=== PATIENT | female | born 1950 | race Caucasian/White ===

== ENCOUNTER 2020-06-26 08:40 | Outpatient (REF) | payer MEDICARE, SELFPAY ==
[2020-06-26 10:36] LABS: Cholesterol 162 mg/dL; HDL Cholesterol 55 mg/dL; LDL Cholesterol Calculated 81 mg/dl; Triglycerides 131 mg/dL
== END 2020-06-26 08:41 | disposition home or self-care (01) ==
LOC: HO.LAB 08:40
PROVIDERS: PCP Internal Medicine; Visit Provider Physician Assistant
DX: E78.5 Hyperlipidemia, unspecified (principal)
CPT/HCPCS: 80061

== ENCOUNTER 2020-06-29 10:54 | Outpatient (REF) | payer MEDICARE, SELFPAY ==
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
== END 2020-06-29 10:55 | disposition home or self-care (01) ==
LOC: HO.MAMMO 10:54
PROVIDERS: PCP Internal Medicine; Visit Provider Internal Medicine
DX: Z12.31 Encounter for screening mammogram for malignant neoplasm of breast (principal)
CPT/HCPCS: 77063; 77067

== ENCOUNTER → 2020-10-15 09:38 | Outpatient (BNVA) | payer MEDICARE, SELFPAY | PROVIDERS: PCP Internal Medicine; Visit Provider Advanced Practice Midwife ==

== ENCOUNTER 2020-10-22 08:09 | Outpatient (REF) | payer MEDICARE, SELFPAY ==
--- NOTE | ~2020-10-22 | MM_ITS ---
EXAMINATION: BONE DENSITOMETRY CLINICAL INDICATION: Menopause. COMPARISON: Previous BD dated 05/02/2011 and baseline BD dated 10/12/2006. TECHNIQUE: Using a [employer] DXA System (software version: 13.1) manufactured by [employer], dual-energy x-ray absorptiometry was performed of the lumbar spine and left hip. The images are of good technical quality. Summary results are attached. FINDINGS: AP SPINE L1-L4 (excluding L2 and L3): The data of L1-L4 has been changed to exclude the L2 and L3 vertebral bodies, because degenerative changes at these levels may cause overestimation of lumbar spine density. Current: BMD 1.317 g/cm2, Z-score 2.2, T-score 1.3, normal, 8.4% increase from previous, 10.5% increase from baseline (<5% change is not significant). Prior: BMD 1.215 g/cm2. Baseline: BMD 1.192 g/cm2. LEFT FEMUR, NECK: Current: BMD 0.945 g/cm2, Z-score 0.6, T-score -0.7, normal. Prior: BMD 0.919 g/cm2. Baseline: BMD 0.879 g/cm2. LEFT FEMUR, TOTAL: Current: BMD 1.201 g/cm2, Z-score 2.5, T-score 1.5, normal, 7.3% increase from previous, 12.9% increase from baseline (<5% change is not significant). Prior: BMD 1.119 g/cm2. Baseline: BMD 1.064 g/cm2. IDENTIFIED RISK FACTORS: Early menopause, bilateral oophorectomy, secondary osteoporosis. HISTORY OF FRACTURE: None listed. MEDICATIONS: Calcium, vitamin D. MM/XR DEXA axial skeleton IMPRESSION: 1. DIAGNOSIS: Normal bone density based on the lowest T-score value of -0.7 in the femoral neck applying World Health Organization criteria. 2. 10-YEAR FRACTURE RISK PREDICTION, FRAX: According to the guidelines, FRAX calculation should only be performed on patients in the osteopenia bone density category. Therefore, FRAX was not performed on this patient. 3. Treatment Recommendations: NOF guidelines recommend consideration for treatment in postmenopausal women and men age 50 and older presenting with the following: -A hip or vertebral (clinical or morphometric) fracture. -T-score less than or equal to -2.5 at the femoral neck or spine after appropriate evaluation to exclude secondary causes. -Low bone mass at the hip or spine and a 10-year fracture probability by FRAX of greater than or equal to 3% for hip fracture or greater than or equal to 20% for major osteoporotic fracture based on the [place] adapted WHO algorithm. 4. Other Recommendations: All treatment decisions require clinical judgment and consideration of individual patient factors, including patient preferences, comorbidities, previous drug use, risk factors not captured in the FRAX model (e.g. frailty, falls, vitamin D deficiency, increased bone turnover, interval significant decline in bone density) and possible under or overestimation of fracture risk by FRAX. FUTURE SCAN RECOMMENDATION: People with diagnosed cases of osteoporosis or at high risk for fracture should have regular bone mineral density tests. For patients eligible for Medicare, routine testing is allowed once every 2 years. The testing frequency can be increased to one year for patients who have rapidly progressing disease, those who are receiving or discontinuing medical therapy to restore bone mass, or have additional risk factors.
== END 2020-10-22 08:10 | disposition home or self-care (01) ==
LOC: HO.MAMMO 08:09
PROVIDERS: Visit Provider Advanced Practice Midwife
DX: Z13.820 Encounter for screening for osteoporosis (principal); Z78.0 Asymptomatic menopausal state; Z90.722 Acquired absence of ovaries, bilateral
CPT/HCPCS: 77080

== ENCOUNTER → 2020-11-17 11:25 | Outpatient (BNVA) | payer MEDICARE, SELFPAY | PROVIDERS: PCP Internal Medicine; Visit Provider Urology | DX: Z13.89 Encounter for screening for other disorder (principal) | CPT/HCPCS: 99212 ==

== ENCOUNTER 2021-01-21 09:03 | Outpatient (REF) | payer MEDICARE, SELFPAY ==
--- NOTE | ~2021-01-21 | US_ITS ---
EXAMINATION: US ABDOMEN COMPLETE CLINICAL INFORMATION: Elevated LFTs. COMPARISON: Ultrasound abdomen complete 05/03/2020. CT abdomen and pelvis 03/01/2020. KUB 12/20/2015. TECHNIQUE: Real-time imaging of the abdominal viscera. FINDINGS: PANCREAS: Normal. ABDOMINAL AORTA: The proximal, mid, and distal segments are normal in caliber. INFERIOR VENA CAVA: Visualized portions are normal. LIVER: The liver is normal in size. The liver contour is normal. There is diffuse increased liver parenchymal echogenicity, consistent with hepatic steatosis. No focal hepatic lesion. There is no intrahepatic biliary duct dilatation seen. GALLBLADDER: Multiple mobile gallstones. The gallbladder is physiologically distended. Multiple mobile gallstones are present. No evidence of gallbladder wall thickening or pericholecystic fluid. COMMON BILE DUCT: Normal in caliber measuring 0.3 cm in diameter. RIGHT KIDNEY: Normal. No hydronephrosis. No renal calculi or focal parenchymal lesions. The kidney measures 11.5 cm in maximum dimension. LEFT KIDNEY: Normal. No hydronephrosis. No renal calculi or focal parenchymal lesions. The kidney measures 9.7 cm in maximum dimension. SPLEEN: Normal. The spleen measures 11.0 cm in maximum dimension. FREE FLUID: None. US/US abdomen complete IMPRESSION: 1. Hepatic steatosis. 2. Cholelithiasis.
== END 2021-01-21 09:04 | disposition home or self-care (01) ==
LOC: HO.HMGCX 09:03
PROVIDERS: Visit Provider Physician Assistant
DX: R74.01 Elevation of levels of liver transaminase levels (principal)
CPT/HCPCS: 76700

== ENCOUNTER 2021-03-07 14:44 | Outpatient (REF) | payer MEDICARE, SELFPAY ==
[2021-03-07 18:16] LABS: MANUAL DIFF FLAG NO
[2021-03-07 18:23] LABS: Basophils Percent Auto 0.7 % (0-2); Eosinophils Percent Auto 0.5 % (0-4); Hematocrit 35.1 % (37-47); Hemoglobin 11.5 g/dl (12.0-16.0); Imm Gran Abs Auto 0.01 X10*3/uL (0.00-0.03); Imm Gran Pct Auto 0.2 % (0.0-0.4); Lymphocytes Absolute Auto 1.7 X10*3/uL (1.2-4.9); Lymphocytes Percent Auto 29.9 % (20-40); Mean Corpuscular HGB Conc 32.8 g/dl (31.0-35.0); Mean Corpuscular Hemoglobin 29.8 pg (27.0-33.0); Mean Corpuscular Volume 90.9 fL (80-98); Mean Platelet Volume 11.9 fL (9.4-12.3); Monocytes Absolute Auto 0.7 X10*3/uL (0.1-1.2); Monocytes Percent Auto 11.8 % (2-11); Neutrophils Absolute Auto 3.2 X10*3/uL (2.0-8.3); Neutrophils Percent Auto 56.9 % (45-73); Platelet Count 252 X10*3/uL (160-400); Red Blood Count 3.86 X10*6/uL (4.20-5.50); Red Cell Distribution Width 13.3 % (11.0-16.0); White Blood Count 5.6 X10*3/uL (4.8-10.8)
[2021-03-07 18:30] LABS: Alanine Aminotransferase 82 U/L (0-31); Albumin Level 4.1 g/dL (3.5-5.0); Alkaline Phosphatase 65 U/L (39-117); Anion Gap 17 (12-20); Aspartate Amino Transferase 96 U/L (5-31); Bilirubin Total 0.7 mg/dL (0.0-1.0); Blood Urea Nitrogen 28 mg/dL (9-16); C Reactive Protein 0.29 mg/dL (< or = 0.50); Calcium 9.3 mg/dL (8.4-10.2); Carbon Dioxide 24 mmol/L (22-29); Chloride 101 mmol/L (96-108); Estimated Glomerular Filt Rate 48; Glucose Random 207 mg/dL (60-115); Potassium 4.3 mmol/L (3.3-5.1); Sodium 138 mmol/L (135-145); Total Protein 8.2 g/dL (6.5-8.0)
[2021-03-07 18:34] LABS: Estimated Average Glucose 169 mg/dL; Hemoglobin A1c % 7.5 %
[2021-03-07 18:39] LABS: Rheumatoid Factor < 15.0 IU/mL (<15.0)
[2021-03-07 18:59] LABS: Erythrocyte Sedimentation Rate 27 MM/HR (0-20)
[2021-03-09 13:51] LABS: Antibody to SS-A Antigen <1.0 NEG AI (<1.0 NEG); Antibody to SS-B Antigen <1.0 NEG AI (<1.0 NEG)
[2021-03-11 14:42] LABS: Anti Nuclear Antibody Pattern Nuclear, Homogeneous; Anti Nuclear Antibody Screen POSITIVE (NEGATIVE)
== END 2021-03-07 14:45 | disposition home or self-care (01) ==
LOC: HO.MANLDS 14:44
PROVIDERS: PCP Internal Medicine; Visit Provider Physician Assistant
DX: E11.9 Type 2 diabetes mellitus without complications (principal)
CPT/HCPCS: 36415; 80053; 83036; 85025; 85652; 86038; 86039; 86140; 86235; 86431

== ENCOUNTER 2021-04-20 14:56 | Outpatient (REF) | payer MEDICARE, SELFPAY ==
[2021-04-20 18:53] LABS: Estimated Average Glucose 134 mg/dL; Hemoglobin A1c % 6.3 %
== END 2021-04-20 14:57 | disposition home or self-care (01) ==
LOC: HO.MANLDS 14:56
PROVIDERS: PCP Physician Assistant; Visit Provider Physician Assistant
DX: E11.9 Type 2 diabetes mellitus without complications (principal)
CPT/HCPCS: 36415; 83036

== ENCOUNTER 2021-07-21 11:22 | Outpatient (REF) | payer MEDICARE, SELFPAY ==
--- NOTE | ~2021-07-21 | MM_ITS ---
EXAMINATION: MM SCREENING DIGITAL BREAST TOMOSYNTHESIS, BILATERAL CLINICAL INFORMATION: Screening. Asymptomatic. The lifetime risk of breast cancer based on the Tyrer-Cuzick Model is 8%. COMPARISON: Mammography: 06/29/2020, 06/24/2019, 06/11/2018 TECHNIQUE: Digital breast tomosynthesis is performed in both the craniocaudal and mediolateral oblique views along with computer-aided detection (CAD). Synthesized 2D images are generated from the tomosynthesis. Additional bilateral MLO views are provided. FINDINGS: There are scattered areas of fibroglandular density (ACR BI-RADS breast composition Category b). There are no significant masses, abnormal calcifications, or other abnormalities. There is biopsy clip marker again noted central upper outer right breast. There are scattered bilateral benign coarse calcifications and some oil cysts again noted from prior trauma. No significant changes. MM/MM tomosynthesis screening BI IMPRESSION: No mammographic evidence of malignancy. ASSESSMENT: BI-RADS 2: Benign RECOMMENDATION: Routine annual mammography screening. This patient's information was entered into a reminder system with a target due date for their next mammogram.
== END 2021-07-21 11:23 | disposition home or self-care (01) ==
LOC: HO.MAMMO 11:22
PROVIDERS: Visit Provider Physician Assistant
DX: Z12.31 Encounter for screening mammogram for malignant neoplasm of breast (principal)
CPT/HCPCS: 77063; 77067

== ENCOUNTER 2021-12-21 08:09 | Outpatient (REF) | payer MEDICARE, SELFPAY ==
[2021-12-21 08:28] LABS: MANUAL DIFF FLAG NO
[2021-12-21 08:34] LABS: Basophils Percent Auto 0.8 % (0-2); Eosinophils Percent Auto 0.8 % (0-4); Hemoglobin 12.1 g/dl (12.0-16.0); Imm Gran Abs Auto 0.03 X10*3/uL (0.00-0.03); Imm Gran Pct Auto 0.6 % (0.0-0.4); Lymphocytes Absolute Auto 1.5 X10*3/uL (1.2-4.9); Mean Corpuscular HGB Conc 31.8 g/dl (31.0-35.0); Mean Corpuscular Hemoglobin 29.6 pg (27.0-33.0); Mean Corpuscular Volume 92.9 fL (80.0-98.0); Mean Platelet Volume 10.3 fL (9.4-12.3); Monocytes Absolute Auto 0.7 X10*3/uL (0.1-1.2); Neutrophils Absolute Auto 2.9 x10*3/uL (2.0-8.3); Neutrophils Percent Auto 54.8 % (45-73); Platelet Count 236 X10*3/uL (160-400); Red Blood Count 4.09 X10*6/uL (4.20-5.50); Red Cell Distribution Width 13.7 % (11.0-16.0); White Blood Count 5.3 X10*3/uL (4.8-10.8)
[2021-12-21 08:51] LABS: Estimated Average Glucose 134 mg/dL; Hemoglobin A1c % 6.3 %
[2021-12-21 09:19] LABS: Alanine Aminotransferase 35 U/L (0-31); Albumin Level 4.5 g/dL (3.5-5.0); Alkaline Phosphatase 61 U/L (39-117); Anion Gap 14 (12-20); Aspartate Amino Transferase 45 U/L (5-31); Bilirubin Total 0.5 mg/dL (0.0-1.0); Blood Urea Nitrogen 29 mg/dL (9-16); Calcium 10.5 mg/dL (8.4-10.2); Carbon Dioxide 26 mmol/L (22-29); Chloride 103 mmol/L (96-108); Cholesterol 181 mg/dL; Estimated Glomerular Filt Rate 49; Glucose Random 169 mg/dL (60-115); HDL Cholesterol 66 mg/dL; LDL Cholesterol Calculated 96 mg/dl; Sodium 138 mmol/L (135-145); Total Protein 8.2 g/dL (6.5-8.0); Triglycerides 98 mg/dL
== END 2021-12-21 08:10 | disposition home or self-care (01) ==
LOC: HO.LAB 08:09
PROVIDERS: PCP Internal Medicine; Visit Provider Physician Assistant
DX: E78.2 Mixed hyperlipidemia (principal); I10 Essential (primary) hypertension; E11.9 Type 2 diabetes mellitus without complications
CPT/HCPCS: 36415; 80053; 80061; 83036; 85025

== ENCOUNTER 2022-01-23 10:51 | Outpatient (REF) | payer MEDICARE, SELFPAY ==
--- NOTE | ~2022-01-23 | XR_ITS ---
EXAMINATION: XR LUMBOSACRAL SPINE CLINICAL INFORMATION: Normal lumbar radiculopathy. COMPARISON: 10/31/2017 TECHNIQUE: Three views of the lumbosacral spine. FINDINGS: There is stable position of neurostimulator device. Vertebral bodies are well aligned with grade 1 anterior listhesis of L4 over L5 and L5 over S1 and mild narrowing of L4-L5 and L5-S1. There is facet hypertrophy. Soft tissues are unremarkable. XR/XR lumbar spine 2-3V IMPRESSION: Degenerative changes with grade 1 anterior listhesis of L4 over L5 and L5 over S1
== END 2022-01-23 10:52 | disposition home or self-care (01) ==
LOC: HO.XRAY 10:51
PROVIDERS: PCP Internal Medicine; Visit Provider Physician Assistant
DX: M54.16 Radiculopathy, lumbar region (principal)
CPT/HCPCS: 72100

== ENCOUNTER 2022-04-12 19:53 | Outpatient (REF) | payer MEDICARE, SELFPAY ==
[2022-04-12 20:04] LABS: Appearance Urine Cloudy; Color Urine Dark Yellow; Glucose Urine UA Negative (Negative); Leukocyte Esterase Urine Negative (Negative); Nitrite Urine Negative (Negative); PH 5.5 (5.0-8.0); Specific Gravity - Urine >= 1.030 (1.005-1.025); Urine Blood Negative (Negative); Urine Ketones Trace mg/dL (Negative); Urine Protein 30 (1+) mg/dL (Neg-Trace)
[2022-04-12 20:42] LABS: Bacteria Urine 4+ (None Seen); Calcium Oxalate Crystals Urine Present; Hyaline Casts Urine 0-2 /LPF (0-2); WBC Urine 0-5 /HPF (0-5)
== END 2022-04-12 19:54 | disposition home or self-care (01) ==
LOC: HO.LNP 19:53
PROVIDERS: Visit Provider Physician Assistant
DX: R30.0 Dysuria (principal)
CPT/HCPCS: 81001

== ENCOUNTER 2022-05-02 12:10 | Outpatient (REF) | payer MEDICARE, SELFPAY ==
[2022-05-02 13:54] LABS: Appearance Urine Turbid; Color Urine Yellow; Glucose Urine UA Negative (Negative); Leukocyte Esterase Urine Trace (Negative); Nitrite Urine Negative (Negative); PH 5.5 (5.0-9.0); UMIC TRIGGER UACC YES; Urine Blood Negative (Negative); Urine Ketones Negative (Negative); Urine Protein 30 (1+) mg/dL (Neg-Trace)
[2022-05-02 14:04] LABS: Bacteria Urine 2+ (None Seen); RBC Urine 0-2 /HPF (0-2); UACC Culture Trigger YES
== END 2022-05-02 12:11 | disposition home or self-care (01) ==
LOC: HO.MANLDS 12:10
PROVIDERS: Visit Provider Physician Assistant
DX: R30.0 Dysuria (principal)
CPT/HCPCS: 81001; 87086

== ENCOUNTER 2022-07-27 11:11 | Outpatient (REF) | payer MEDICARE, SELFPAY ==
--- NOTE | ~2022-07-27 | MM_ITS ---
EXAMINATION: MM SCREENING DIGITAL BREAST TOMOSYNTHESIS, BILATERAL CLINICAL INFORMATION: Screening. Asymptomatic. The lifetime risk of breast cancer based on the Tyrer-Cuzick Model is 7.9%. COMPARISON: Mammography: July 21, 2021 and studies dating back to May 10, 2016 TECHNIQUE: Digital breast tomosynthesis is performed in both the craniocaudal and mediolateral oblique views along with computer-aided detection (CAD). Synthesized 2D images are generated from the tomosynthesis. FINDINGS: The breasts are heterogeneously dense, which may obscure small masses (ACR BI-RADS breast composition Category c). There are no new significant masses, abnormal calcifications, or other abnormalities. MM/MM tomosynthesis screening BI IMPRESSION: No significant changes from prior exam. ASSESSMENT: BI-RADS 1: Negative RECOMMENDATION: Routine annual mammography screening. This patient's information was entered into a reminder system with a target due date for their next mammogram.
== END 2022-07-27 11:12 | disposition home or self-care (01) ==
LOC: HO.MAMMO 11:11
PROVIDERS: PCP Internal Medicine; Visit Provider Internal Medicine
DX: Z12.31 Encounter for screening mammogram for malignant neoplasm of breast (principal)
CPT/HCPCS: 77063; 77067

== ENCOUNTER 2022-09-15 09:18 | Outpatient (REF) | payer MEDICARE, SELFPAY ==
[2022-09-15 09:34] LABS: MANUAL DIFF FLAG NO
[2022-09-15 11:06] LABS: Basophils Percent Auto 0.6 % (0-2); Eosinophils Percent Auto 0.4 % (0-4); Hematocrit 36.6 % (37.0-47.0); Hemoglobin 12.2 g/dl (12.0-16.0); Imm Gran Abs Auto 0.03 X10*3/uL (0.00-0.03); Imm Gran Pct Auto 0.6 % (0.0-0.4); Lymphocytes Absolute Auto 1.7 X10*3/uL (1.2-4.9); Lymphocytes Percent Auto 33.3 % (20-40); Mean Corpuscular HGB Conc 33.3 g/dl (31.0-35.0); Mean Corpuscular Volume 90.1 fL (80.0-98.0); Mean Platelet Volume 12.5 fL (9.4-12.3); Monocytes Absolute Auto 0.7 X10*3/uL (0.1-1.2); Monocytes Percent Auto 14.6 % (2-11); Neutrophils Absolute Auto 2.6 x10*3/uL (2.0-8.3); Neutrophils Percent Auto 50.5 % (45-73); Platelet Count 183 X10*3/uL (160-400); Red Blood Count 4.06 X10*6/uL (4.20-5.50); Red Cell Distribution Width 14.3 % (11.0-16.0); White Blood Count 5.1 X10*3/uL (4.8-10.8)
[2022-09-15 11:21] LABS: Estimated Average Glucose 137 mg/dL; Hemoglobin A1c % 6.4 %
[2022-09-15 11:38] LABS: Cholesterol 165 mg/dL; HDL Cholesterol 60 mg/dL; LDL Cholesterol Calculated 86 mg/dl; Triglycerides 97 mg/dL
== END 2022-09-15 09:19 | disposition home or self-care (01) ==
LOC: HO.LABR 09:18
PROVIDERS: PCP Internal Medicine; Visit Provider Physician Assistant
DX: I10 Essential (primary) hypertension (principal); E11.9 Type 2 diabetes mellitus without complications; E78.2 Mixed hyperlipidemia
CPT/HCPCS: 36415; 80061; 83036; 85025

== ENCOUNTER 2022-11-29 07:39 | Outpatient (REF) | payer MEDICARE, SELFPAY ==
--- NOTE | ~2022-11-29 | US_ITS ---
EXAMINATION: US ABDOMEN COMPLETE CLINICAL INFORMATION: Left upper quadrant pain. COMPARISON: Ultrasound abdomen complete 01/21/2021 and 05/03/2020. CT abdomen and pelvis 03/01/2020. X-ray abdomen KUB 12/20/2015. TECHNIQUE: Real-time imaging of the abdominal viscera. FINDINGS: PANCREAS: Normal. ABDOMINAL AORTA: There is mild atherosclerosis INFERIOR VENA CAVA: Visualized portions are normal. LIVER: The liver is enlarged with the right lobe measuring 19.2 cm and the left lobe measuring 12 cm. There is diffuse increased echogenicity with no focal lesion or intrahepatic ductal dilatation. The hepatic contour is normal. GALLBLADDER: Surgically absent. COMMON BILE DUCT: Normal in caliber measuring 0.5 cm in diameter. RIGHT KIDNEY: Normal. No hydronephrosis. No renal calculi or focal parenchymal lesions. The kidney measures 11.5 cm in maximum dimension. LEFT KIDNEY: Normal. No hydronephrosis. No renal calculi or focal parenchymal lesions. The kidney measures 10.5 cm in maximum dimension. SPLEEN: Normal. The spleen measures 11.5 cm in maximum dimension. FREE FLUID: None. US/US abdomen complete IMPRESSION: 1. Diffuse fatty infiltration of liver without focal lesion. Mild hepatomegaly 2. The rest of the abdominal ultrasound is unremarkable.
== END 2022-11-29 07:40 | disposition home or self-care (01) ==
LOC: HO.HMGCX 07:39
PROVIDERS: PCP Internal Medicine; Visit Provider Physician Assistant
DX: R10.12 Left upper quadrant pain (principal)
CPT/HCPCS: 76700

== ENCOUNTER 2022-12-15 11:28 | Outpatient (REF) | payer MEDICARE, SELFPAY ==
[2022-12-15 13:16] LABS: Creatinine Urine 119.17 mg/dL; Microalbum/Creatinine Ratio Ur 326.4 ug/mg cr
[2022-12-15 13:18] LABS: Estimated Average Glucose 154 mg/dL
[2022-12-15 13:45] LABS: Alanine Aminotransferase 47 U/L (0-31); Albumin Level 4.5 g/dL (3.5-5.0); Alkaline Phosphatase 83 U/L (39-117); Anion Gap 14 (12-20); Aspartate Amino Transferase 53 U/L (5-31); Bilirubin Total 0.7 mg/dL (0.0-1.0); Blood Urea Nitrogen 17 mg/dL (9-16); Calcium 10.2 mg/dL (8.4-10.2); Carbon Dioxide 25 mmol/L (22-29); Chloride 102 mmol/L (96-108); Estimated Glomerular Filt Rate 60; Glucose Random 104 mg/dL (60-115); Potassium 4.9 mmol/L (3.3-5.1); Sodium 136 mmol/L (135-145); Total Protein 8.4 g/dL (6.5-8.0)
== END 2022-12-15 11:29 | disposition home or self-care (01) ==
LOC: HO.MANLDS 11:28
PROVIDERS: Visit Provider Internal Medicine
DX: E11.9 Type 2 diabetes mellitus without complications (principal)
CPT/HCPCS: 36415; 80053; 82043; 83036

== ENCOUNTER → 2023-01-01 07:45 | Outpatient (REF) | payer MEDICARE, SELFPAY ==
--- NOTE | 2023-01-01 07:49 | CA_ITS ---
Transthoracic Echocardiogram Patient (Last, First, Middle): Renée Manzanares L Gender: Female Date of : 1950 Age: 72 Procedure Date: 01/01/2023 Procedure Type: Transthoracic Echocardiogram Location: OP Height: 152.4 cm Weight: 87.09 kg BSA: 1.83 m2 Heart Rate: bpm BP: 126 / 60 mmHg [employer]ant Swimmer: Referring MD: Dayton Kitchen MD Symptoms: R06.09 [id number] Study Quality: Fair ECG Rhythm: Sinus Conclusions: - The left ventricular systolic function is normal. The visually estimated ejection fraction is between 60-65%. - Evidence suggests grade I (mild) diastolic dysfunction. - No obvious valvular pathology seen on this study. Findings Left Ventricle Normal left ventricular cavity size. There is mildly increased left ventricular wall thickness. The left ventricular systolic function is normal. The visually estimated ejection fraction is between 60-65%. There is no evidence of regional wall motion abnormalities. E/E prime ratio is >15, consistent with elevated filling pressures. Evidence suggests grade I (mild) diastolic dysfunction. Right Ventricle Normal right ventricular cavity size and systolic function. Atria Both atria are normal in size. Aortic Valve The aortic valve was not well visualized. There is no aortic valve stenosis. There is no aortic valve regurgitation. Mitral Valve The mitral valve appears normal. There is mild mitral annular calcification. There is no mitral valve regurgitation. There is no mitral valve stenosis. Pulmonic Valve The pulmonic valve is likely normal. Tricuspid Valve There is trace tricuspid valve regurgitation. There is no evidence of pulmonary hypertension. Great Vessels The asc aorta is normal in size. Venous The inferior vena cava is normal in size and collapses greater than 50% with inspiration. Pericardium/Pleural There is no evidence of pericardial effusion. Prior Study Comparison No significant change compared to prior study dated: 07/27/2017. Recommendations, Care & Conclusions No obvious valvular pathology seen on this study. Measurements 2D Linear Measurements IVSd: 1.18 0.6-0.9/0.6-1.0 cm LVIDd: 3.86 3.9-5.3/4.2-5.9 cm LVIDd Index: 2.11 2.4-3.2/2.2-3.1 cm/m2 LVIDs: 2.80 2.0-3.6 cm LVPWd: 1.14 0.7-1.1 cm Ao Root: 2.70 2.1-3.5 cm LA Diam: 4.20 2.7-3.8/3.0-4.0 cm LAIDs Index: 2.30 1.5-2.3 cm/m2 LV Mass: 185.66 67-162/88-224 g LV Mass Index: 101.45 43-95/49-115 g/m2 LVOT Diam: 1.90 3.0+(-)1.3 cm 2D Systolic Function EF 4C: 50.20 >55% EF 2C: 59.10 >55% EF BiP: 56.20 >55% Mitral Valve MV Pk E: 0.87 MV PK A: 1.21 MV Decel Time: 237.00 E/A: 0.70 E'Lateral: 4.57 E'Medial: 4.79 E/E' Med: 18.20 E/E' Lat: 19.10 PHT: 70.00 MVA PHT: 3.14 Decel Vernon: 3.68 Aortic Valve AoV Pk Carl: 1.39 AoV Mn Carl: 0.85 AoV VTI: 0.31 AoV Pk Grad: 8.00 Aov Mn Grad: 4.00 SHELDON Cont.VTI: 2.33 LVOT LVOT Pk Carl: 1.20 LVOT Mn Carl: 0.72 LVOT VTI: 0.25 LVOT Pk Grad: 6.00 LVOT Mn Grad: 3.00 LVOT Diam: 1.90 LVOT Area: 2.84 Diastolic Function MV Pk E: 0.87 MV Pk A: 1.21 E/A: 0.70 E'Medial: 4.79 E/E' Med: 18.20 E' Laterial: 4.57 E/E' Lat: 19.10 Right Ventricle TAPSE (mm): 24.00 TVS' Carl: 11.00 Tricuspid Valve TR Pk Carl: 2.48 TR Pk Grad: 25.00 RA Press: 3.00 RVSP: 28.00 Great Vessels Aorta Ao Root-2D: 2.70 2.0-3.7 cm Ao Asc: 2.90 2.1-3.4 cm Pulmonary Valve PV Pk Carl: 0.86 Peak PV Grad: 3.00 Updated in Other Vendor System with Status of Final Lev Matthews MD electronically signed on 01/01/2023 11:38:18 AM with status of Final
== END ==
LOC: HO.CARD 07:45
PROVIDERS: PCP Internal Medicine; Visit Provider Internal Medicine
DX: R06.09 Other forms of dyspnea (principal)
CPT/HCPCS: 93306

== ENCOUNTER 2023-07-17 10:34 | Outpatient (REF) | payer MEDICARE, SELFPAY ==
[2023-07-17 13:21] LABS: MANUAL DIFF FLAG NO
[2023-07-17 13:42] LABS: Basophils Absolute Auto 0.1 X10*3/uL (0.0-0.2); Basophils Percent Auto 0.9 % (0-2); Eosinophils Percent Auto 0.5 % (0-4); Hematocrit 35.2 % (37.0-47.0); Hemoglobin 11.7 g/dl (12.0-16.0); Imm Gran Abs Auto 0.03 X10*3/uL (0.00-0.03); Imm Gran Pct Auto 0.5 % (0.0-0.4); Lymphocytes Absolute Auto 1.8 X10*3/uL (1.2-4.9); Lymphocytes Percent Auto 32.1 % (20-40); Mean Corpuscular HGB Conc 33.2 g/dl (31.0-35.0); Mean Corpuscular Hemoglobin 29.8 pg (27.0-33.0); Mean Corpuscular Volume 89.6 fL (80.0-98.0); Mean Platelet Volume 12.2 fL (9.4-12.3); Monocytes Absolute Auto 0.8 X10*3/uL (0.1-1.2); Monocytes Percent Auto 14.8 % (2-11); Neutrophils Absolute Auto 2.9 x10*3/uL (2.0-8.3); Neutrophils Percent Auto 51.2 % (45-73); Platelet Count 169 X10*3/uL (160-400); Red Blood Count 3.93 X10*6/uL (4.20-5.50); Red Cell Distribution Width 14.5 % (11.0-16.0); White Blood Count 5.6 X10*3/uL (4.8-10.8)
[2023-07-17 13:54] LABS: Estimated Average Glucose 146 mg/dL; Hemoglobin A1C 152.3971 umol/L; Hemoglobin A1c % 6.7 % (<6.0)
[2023-07-17 14:25] LABS: Alanine Aminotransferase 51 U/L (0-31); Albumin Level 4.4 g/dL (3.5-5.0); Alkaline Phosphatase 60 U/L (39-117); Anion Gap 11 (12-20); Aspartate Amino Transferase 64 U/L (5-31); Bilirubin Total 0.6 mg/dL (0.0-1.0); Blood Urea Nitrogen 20 mg/dL (9-16); Calcium 9.5 mg/dL (8.4-10.2); Carbon Dioxide 25 mmol/L (22-29); Chloride 106 mmol/L (96-108); Cholesterol 165 mg/dL (<200); Estimated Glomerular Filt Rate > 60; Glucose Random 102 mg/dL (60-115); HDL Cholesterol 56 mg/dL (>40); LDL Cholesterol Calculated 92 mg/dL (<100); Potassium 4.5 mmol/L (3.3-5.1); Sodium 137 mmol/L (135-145); Total Protein 8.6 g/dL (6.5-8.0); Triglycerides 89 mg/dL (<150)
== END 2023-07-17 10:35 | disposition home or self-care (01) ==
LOC: HO.MANLDS 10:34
PROVIDERS: Visit Provider Physician Assistant
DX: R30.0 Dysuria (principal); E11.9 Type 2 diabetes mellitus without complications
CPT/HCPCS: 36415; 80053; 80061; 83036; 85025; 87086

== ENCOUNTER → 2023-08-03 11:00 | Outpatient (BNV) | payer MEDICARE, SELFPAY | PROVIDERS: PCP Physician Assistant; Visit Provider Radiology Diagnostic Radiology | DX: Z12.31 Encounter for screening mammogram for malignant neoplasm of breast (principal) | CPT/HCPCS: 77063; 77067 ==

== ENCOUNTER 2023-08-03 11:01 | Outpatient (REF) | payer MEDICARE, SELFPAY ==
--- NOTE | ~2023-08-03 | MM_ITS ---
EXAMINATION: MM SCREENING DIGITAL BREAST TOMOSYNTHESIS, BILATERAL CLINICAL INFORMATION: Screening. Asymptomatic. COMPARISON: Mammography: This study is compared with prior exams dating back to 2018. TECHNIQUE: Digital breast tomosynthesis is performed in both the craniocaudal and mediolateral oblique views along with computer-aided detection (CAD). Synthesized 2D images are generated from the tomosynthesis. FINDINGS: There are scattered areas of fibroglandular density (ACR BI-RADS breast composition Category b). There are no significant masses, abnormal calcifications, or other abnormalities. There is tissue marker present in the right breast from prior benign percutaneous biopsy. MM/MM tomosynthesis screening BI IMPRESSION: No mammographic evidence of malignancy. ASSESSMENT: BI-RADS BI-RADS 2 - Benign Findings RECOMMENDATION: Routine annual mammography screening. 1 year F/U This examination should not preclude the clinical evaluation of a suspicious palpable abnormality. This patient's information was entered into a reminder system with a target due date for their next mammogram.
== END 2023-08-03 11:02 | disposition home or self-care (01) ==
LOC: HO.MAMMO 11:01
PROVIDERS: PCP Physician Assistant; Visit Provider Internal Medicine
DX: Z12.31 Encounter for screening mammogram for malignant neoplasm of breast (principal)
CPT/HCPCS: 77063; 77067

== ENCOUNTER 2024-03-10 09:28 | Outpatient (REF) | payer MEDICARE, SELFPAY ==
[2024-03-10 13:14] LABS: MANUAL DIFF FLAG NO
[2024-03-10 13:26] LABS: Basophils Percent Auto 0.7 % (0-2); Eosinophils Percent Auto 0.5 % (0-4); Hematocrit 35.8 % (37.0-47.0); Hemoglobin 11.6 g/dl (12.0-16.0); Imm Gran Pct Auto 1.7 % (0.0-0.4); Lymphocytes Absolute Auto 1.9 X10*3/uL (1.2-4.9); Lymphocytes Percent Auto 31.9 % (20-40); Mean Corpuscular HGB Conc 32.4 g/dl (31.0-35.0); Mean Corpuscular Hemoglobin 29.2 pg (27.0-33.0); Mean Corpuscular Volume 90.2 fL (80.0-98.0); Mean Platelet Volume 13.7 fL (9.4-12.3); Monocytes Percent Auto 16.6 % (2-11); Neutrophils Absolute Auto 2.8 x10*3/uL (2.0-8.3); Neutrophils Percent Auto 48.6 % (45-73); Platelet Count 133 X10*3/uL (160-400); Red Blood Count 3.97 X10*6/uL (4.20-5.50); Red Cell Distribution Width 17.2 % (11.0-16.0); White Blood Count 5.8 X10*3/uL (4.8-10.8)
[2024-03-10 13:35] LABS: Estimated Average Glucose 143 mg/dL; Hemoglobin A1c % 6.6 % (<6.0)
[2024-03-10 13:59] LABS: Alanine Aminotransferase 68 U/L (0-31); Albumin Level 4.3 g/dL (3.5-5.0); Alkaline Phosphatase 54 U/L (39-117); Anion Gap 14 (12-20); Aspartate Amino Transferase 70 U/L (5-31); Bilirubin Total 0.5 mg/dL (0.0-1.0); Blood Urea Nitrogen 21 mg/dL (9-16); Calcium 9.5 mg/dL (8.4-10.2); Carbon Dioxide 24 mmol/L (22-29); Chloride 102 mmol/L (96-108); Cholesterol 231 mg/dL (<200); Estimated Glomerular Filt Rate 59; Glucose Random 121 mg/dL (60-115); HDL Cholesterol 57 mg/dL (>40); LDL Cholesterol Calculated 150 mg/dL (<100); Potassium 4.3 mmol/L (3.3-5.1); Sodium 136 mmol/L (135-145); Total Protein 8.1 g/dL (6.5-8.0); Triglycerides 121 mg/dL (<150)
== END 2024-03-10 09:29 | disposition home or self-care (01) ==
LOC: HO.MANLDS 09:28
PROVIDERS: Visit Provider Physician Assistant
DX: E11.649 Type 2 diabetes mellitus with hypoglycemia without coma (principal)
CPT/HCPCS: 36415; 80053; 80061; 83036; 85025

== ENCOUNTER 2024-03-12 11:45 | Outpatient (REF) | payer MEDICARE, SELFPAY ==
[2024-03-12 13:21] LABS: MANUAL DIFF FLAG NO
[2024-03-12 13:27] LABS: Basophils Absolute Auto 0.1 X10*3/uL (0.0-0.2); Basophils Percent Auto 0.6 % (0-2); Eosinophils Percent Auto 0.2 % (0-4); Hematocrit 37.1 % (37.0-47.0); Hemoglobin 12.2 g/dl (12.0-16.0); Imm Gran Pct Auto 1.2 % (0.0-0.4); Lymphocytes Absolute Auto 2.1 X10*3/uL (1.2-4.9); Lymphocytes Percent Auto 25.7 % (20-40); Mean Corpuscular HGB Conc 32.9 g/dl (31.0-35.0); Mean Corpuscular Volume 88.3 fL (80.0-98.0); Mean Platelet Volume 12.4 fL (9.4-12.3); Monocytes Absolute Auto 1.4 X10*3/uL (0.1-1.2); Monocytes Percent Auto 17.1 % (2-11); Neutrophils Absolute Auto 4.6 x10*3/uL (2.0-8.3); Neutrophils Percent Auto 55.2 % (45-73); Platelet Count 171 X10*3/uL (160-400); White Blood Count 8.3 X10*3/uL (4.8-10.8)
[2024-03-12 14:29] LABS: Iron 77 mcg/dL (30-160); Percent Iron Saturation 20 % (15-50); Total Iron Binding Capacity 384 mcg/dL (228-428); Unsaturated Iron Binding 307 ug/dL
[2024-03-12 14:44] LABS: Ferritin 46 ng/mL (10-250)
== END 2024-03-12 11:46 | disposition home or self-care (01) ==
LOC: HO.HMGCLDS 11:45
PROVIDERS: PCP Physician Assistant; Visit Provider Physician Assistant
DX: D64.9 Anemia, unspecified (principal)
CPT/HCPCS: 36415; 82728; 83540; 85025

== ENCOUNTER 2024-08-08 10:43 | Outpatient (REF) | payer MEDICARE, SELFPAY ==
--- OUTSIDE RECORDS SUMMARY | 2024-08-08 11:05 | XMS_ITS | Continuity of Care Document ---
Author Organization [place] - [facility], [facility] Address [address] [place] [address] [place] [address] Care Team Providers Care Paper Sales Manager Name Role Phone FLOWER GARCIA [employer] Division Manager Unavailable Assessment No assessment recorded. Plan of Treatment Reminders Order Date Submit Date Provider Last Modified By Organization Details Last Modified Time Details Appointments FOLLOW UP 15 2024 11:15A ARACELY GRAHAM Not available Not available Not available Lab None recorded. Referral None recorded. Procedures None recorded. Surgeries None recorded. Imaging None recorded. Medication Orders fluticaso ne propionat e 50 mcg/actua tion nasal spray,valarie pension 2023 [facility], [address] [place] [address], [id number], 06/10/2024 10:48:21 clobetaso l 0.05 % topical ointment 2023 024 [facility], [address] [place] [address], [id number], 06/10/2024 10:48:21 Lantus Solostar U-100 Insulin 100 unit/mL (3 mL) subcutane ous pen 2023 [facility], [address] [place] [address], [id number], 06/10/2024 10:54:23 clotrimaz ole-betam ethasone 1 %-0.05 % topical cream 2023 024 [facility], [address] [place] [address], [id number], 06/10/2024 10:48:20 Patient TargetsNo targets recorded. Patient InstructionsNo instructions recorded. Reason for Referral None Reported. Problems Name Problem SNOMED Code Status Onset Date Resolution Date Notes Provider Name and Address Organization Details Recorded Time Hemifacial spasm 11073648 Active 2018 Not Available [facility] 3 12:50:30 Generalize d anxiety disorder 57126004 Active 2018 Not Available [facility] 3 12:50:30 Liver enzymes level above reference range 374816982 Active 2018 Not Available [facility] 3 12:50:30 Polyp of colon 04449334 Active 2017 Not Available [facility] 3 12:50:30 Depressive disorder 56708280 Active 2017 Not Available [facility] 3 12:50:30 Gastroesop hageal reflux disease 114235486 Active 2017 Not Available [facility] 3 12:50:30 Sleep apnea 19803177 Active 2017 Not Available [facility] 3 12:50:30 Essential hypertensi on 90092576 Active 2017 Not Available [facility] 3 12:50:30 Type 2 diabetes mellitus 10940053 Active 2017 Not Available [facility] 3 12:50:30 Hyperlipid emia 70151594 Active 2017 Not Available [facility] 3 12:50:30 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 2017 Not Available [facility] 3 12:50:30 Anxiety 16644667 Active 2021 Not Available [facility] 3 12:50:30 Lumbar radiculopa thy 787014117 Active 2021 Not Available [facility] 3 12:50:30 Mood disorder 65973804 Active 2021 Not Available [facility] 3 12:50:30 Dysuria 82240955 Active 2021 Not Available [facility] 3 12:50:30 Atrophic vaginitis 96233220 Active 2021 Not Available [facility] 3 12:50:30 Acute otitis media 0934901 Active 2021 Not Available [facility] 3 12:50:30 Candidiasi s of skin 51085436 Active 2021 Not Available [facility] 3 12:50:30 Abdominal pain 33666023 Active 2022 Not Available [facility] 3 12:50:30 Fecal impaction 02339314 Active 2022 Not Available [facility] 3 12:50:30 Autoimmune disease 45508795 Active 2022 Not Available [facility] 3 12:50:30 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 steatohepa titis 212082447 Active 2022 Not Available [facility] 3 12:50:30 Diverticul osis of colon 214823175 Active 2022 Not Available [facility] 3 12:50:30 Dyspnea on exertion 59535794 Active 2022 Not Available [facility] 3 12:50:30 Intertrigo 54075783 Active 2022 Not Available [facility] 3 12:50:30 Urinary incontinen ce 201530435 Active 2022 ARACELY SAINZ [address] [place], [address], [facility] 3 10:09:49 Seborrheic dermatitis of scalp 700023629 Active 2022 ARACELY SAINZ [address] [place], [address], [facility] 3 10:22:21 Hypoglycem ia 512734953 Active 2023 ARACELY SAINZ [address] [place], [address], [facility] 4 10:35:18 Anemia 772467018 Active 2023 ARACELY SAINZ [address] [place], [address], [facility] 4 16:17:57 Fatigue 26907080 Active 2023 ARACELY SAINZ [address] [place], [address], [facility] 4 14:43:47 Allergic rhinitis 05448756 Active 2023 ARACELY SAINZ [address] [place], [address], [facility] 4 10:47:17 Problem Notes None recorded. Medical Equipment None Reported. Allergies No known drug allergies Medications Name Sig Start Date Stop Date Status Note LastModified by Organization Details LastModified Time losartan 50 mg tablet TAKE 1 TABLET BY MOUTH EVERY DAY 12/08 completed Not Available Not Available Not Available quetiapine 25 mg tablet TAKE 1 TABLET BY MOUTH EVERY DAY 2023 active Not Available Not Available Not Avai lable atorvastati n 40 mg tablet 1 po qd 2023 active Not Available Not Available Not Avai lable metformin 500 mg tablet TAKE 2 TABLETS IN THE MORNING AND 1 TABLET IN THE EVENING active Not Available Not Available No t Available citalopram 40 mg tablet TAKE 1 TABLET BY MOUTH EVERY DAY 12/10 completed Not Available Not Available Not Available trazodone 50 mg tablet TAKE 1 TABLET EVERY DAY BY ORAL ROUTE 2021 active Not Available Not Available Not Avai lable Stool Softener 100 mg capsule TAKE 1 CAPSULE BY MOUTH TWICE A DAY active Not Available Not Available No t Available cefpodoxime 200 mg tablet TAKE 1 TABLET BY MOUTH EVERY 12 HOURS FOR 10 DAYS 11/20 completed Not Available Not Available Not Available benzonatate 200 mg capsule TAKE 1 CAPSULE BY MOUTH 3 TIMES A DAY FOR 14 12/30 completed Not Available Not Available Not Available tolterodine ER 4 mg capsule,ext ended release 24 hr Take 1 capsule every day by oral route. 02/11 completed Not Available Not Available Not Available FreeStyle Lancets 28 gauge USE TO CHECK SUGAR ONCE PER DAY active Not Available Not Available No t Available clonazepam 0.5 mg tablet Take 1 tablet every day by oral route as needed. 01/17 completed Not Available Not Available Not Available metronidazo le 250 mg tablet Take 2 tablets every 6 hours by oral route for 7 days. 12/08 completed Not Available Not Available Not Available glipizide ER 5 mg tablet, extended release 24 hr TAKE 1 TABLET BY MOUTH EVERY DAY 2023 active Not Available Not Available Not Avai lable Diflucan 150 mg tablet 1 tablet every 72 hours for 3 doses 07/15 completed Not Available Not Available Not Available Remicade 100 mg intravenous solution one infusion every 12 weeks 03/07 completed Not Available Not Available Not Available amlodipine 5 mg tablet Take 1 tablet every day by oral route for 30 days. 01/01 completed Not Available Not Available Not Available simvastatin 80 mg tablet TAKE 1 TABLET BY MOUTH EVERY DAY 09/26 completed Not Available Not Available Not Available sulfamethox azole 800 mg-trimetho prim 160 mg tablet TAKE 1 TABLET BY MOUTH EVERY 12 HOURS FOR 10 DAYS 05/02 completed Not Available Not Available Not Available triamcinolo ne acetonide 0.1 % topical cream APPLY A THIN LAYER TO THE AFFECTED AREA(S) BY TOPICAL ROUTE 2 TIMES PER DAY 01/17 completed Not Available Not Available Not Available Macrobid 100 mg capsule Take 1 capsule every 12 hours by oral route for 7 days. 04/16 completed Not Available Not Available Not Available amoxicillin 875 mg tablet Take 1 tablet every 12 hours by oral route for 10 days. 10/15 completed Not Available Not Available Not Available famotidine 20 mg tablet Take 1 tablet twice a day by oral route. 12/08 completed Not Available Not Available Not Available tolterodine 2 mg tablet Take 1 tablet twice a day by oral route. 03/03 completed Not Available Not Available Not Available amlodipine 10 mg tablet TAKE 1 TABLET BY MOUTH EVERY DAY active Not Available Not Available No t Available erythromyci n 5 mg/gram (0.5 %) eye ointment APPLY A SMALL AMOUNT TO THE LEFT EYELID MARGIN AT BEDTIME X 1-2WKS 06/10 completed Not Available Not Available Not Available telmisartan 40 mg tablet TAKE 1 TABLET BY MOUTH EVERY DAY active Not Available Not Available No t Available Cipro 500 mg tablet Take 1 tablet every 12 hours by oral route for 7 days. 12/08 completed Not Available Not Available Not Available nystatin 100,000 unit/gram topical cream APPLY TO AFFECTED AREA TWICE A DAY active Not Available Not Available No t Available clotrimazol e-betametha sone 1 %-0.05 % topical cream APPLY CREAM TOPICALLY TO AFFECTED AND SURROUNDI NG AREAS TWICE DAILY IN THE MORNING AND EVENING FOR 2 WEEKS active Not Available Not Available No t Available sertraline 25 mg tablet TAKE 1 TABLET BY MOUTH EVERY DAY 2023 active Not Available Not Available Not Avai lable Avapro 150 mg tablet Take 1 tablet every day by oral route. 10/30 completed Not Available Not Available Not Available folic acid 1 mg tablet Take 1 tablet every day by oral route. 01/17 completed Not Available Not Available Not Available halobetasol propionate 0.05 % topical cream APPLY A THIN LAYER TO THE AFFECTED AREA(S) BY TOPICAL ROUTE BID DO NOT EXCEED 50 GRAMS PER WEEK OR 2 WEEKS DURATION 12/08 completed Not Available Not Available Not Available lisinopril 5 mg tablet Take 1 tablet every day by oral route. 03/10 completed Not Available Not Available Not Available mupirocin 2 % topical ointment APPLY TO AFFECTED AREA 3 TIMES A DAY active Not Available Not Available No t Available clobetasol 0.05 % topical ointment APPLY A THIN LAYER OF OINTMENT TOPICALLY TO AFFECTED AREA(S) TWICE DAILY active Not Available Not Available No t Available fluocinonid e 0.05 % topical solution APPLY TO AFFECTED AREAS TWICE A DAY FOR 4 WEEKS THEN STOP active Not Available Not Available No t Available polyethylen e glycol 3350 17 gram/dose oral powder Take 8.5 g every day by oral route. 11/20 completed Not Available Not Available Not Available estradiol 0.01% (0.1 mg/gram) vaginal cream INSERT 1 GRAM VAGINALLY TWICE WEEKLY AT BEDTIME active Not Available Not Available No t Available imipramine 10 mg tablet TAKE 1 TABLET BY MOUTH AT BEDTIME 03/07 completed Not Available Not Available Not Available fluticasone propionate 50 mcg/actuati on nasal spray,suspe nsion USE 1 SPRAY INTO EACH NOSTRIL ONCE DAILY active Not Available Not Available No t Available imipramine 25 mg tablet TAKE 1 TABLET BY MOUTH EVERY DAY active Not Available Not Available No t Available doxycycline hyclate 100 mg tablet TAKE 1 TABLET BY MOUTH EVERY DAY 09/01 completed Not Available Not Available Not Available Enulose 10 gram/15 mL oral solution TAKE 15 ML BY MOUTH ONCE A DAY FOR 30 DAYS 01/10 completed Not Available Not Available Not Available amoxicillin 875 mg-potassiu m clavulanate 125 mg tablet Take 1 tablet every 12 hours by oral route for 10 days. 07/17 completed Not Available Not Available Not Available neomycin-po lymyxin-hyd rocort 3.5 mg-10,000 unit/mL-1 % ear drops,susp INSTILL 4 DROPS INTO AFFECTED EAR(S) 3 TIMES A DAY 07/17 completed Not Available Not Available Not Available Restasis 0.05 % eye drops in a dropperette INSTILL 1 DROP INTO AFFECTED EYE EVERY 12 HOURS active Not Available Not Available No t Available bupropion HCl XL 300 mg 24 hr tablet, extended release TAKE 1 TABLET BY MOUTH EVERY DAY 04/12 completed Not Available Not Available Not Available bupropion HCl XL 150 mg 24 hr tablet, extended release TAKE 1 TABLET BY MOUTH EVERY DAY 2023 active Not Available Not Available Not Avai lable Alcohol Prep Pads APPLY 5 PADS TOPICALLY EVERY DAY active Not Available Not Available No t Available trospium 20 mg tablet TAKE 1 TABLET BY MOUTH EVERYDAY AT BEDTIME 07/17 completed Not Available Not Available Not Available duloxetine 60 mg capsule,del ayed release TAKE 1 CAPSULE BY MOUTH EVERY DAY active Not Available Not Available No t Available solifenacin 5 mg tablet TAKE 1 TABLET BY MOUTH EVERY DAY 2023 active Not Available Not Available Not Avai lable Vitamin C active Not Available Not Chuyita ilable Not Available Aleve active Not Available Not Availa ble Not Available Fish Oil 600m twice a day active Not Available Not Available No t Available Botox every 3 months active Not Available Not Available No t Available One Touch Ultra Test Strips 10/30 completed Not Available Not Available Not Available Calcium 600 + D(3) Take one tablet twice a day active Not Available Not Available No t Available hydrochloro thiazide 12.5 mg tablet TAKE 1 TABLET BY MOUTH EVERY DAY active Not Available Not Available No t Available FreeStyle Lite Meter kit USE KIT TO CHECK SUGAR THREE TIMES PER DAY ON GLUCOMETE R 2023 active Not Available Not Available Not Avai lable FreeStyle Lite Strips TAKE 1 STRIP EVERY DAY BY MISCELL. ROUTE DIRECTED FOR 30 DAYS. active Not Available Not Available No t Available Lantus Solostar U-100 Insulin 100 unit/mL (3 mL) subcutaneou s pen active Not Available Not Available Not Available Durezol 0.05 % eye drops INSTILL 1 DROP INTO AFFECTED EYE(S) BY OPHTHALMI C ROUTE 4 TIMES PER DAY ;START 24HRS POST OP X 2 WKS; THEN 2 TIMES/DAY X 7 DAYS; THEN TAPER 04/16 completed Not Available Not Available Not Available Prevnar 13 (PF) 0.5 mL intramuscul ar syringe TO BE ADMINISTE RED BY PHARMACIS T FOR IMMUNIZAT ION 01/10 completed Not Available Not Available Not Available OneTouch Delica Lancets 33 gauge USE TO TEST ONCE DAILY active Not Available Not Available No t Available Probiotic active Not Available Not Chuyita ilable Not Available methotrexat e 2.5 mg tablet Take 6 tablets every week by oral route. 01/17 completed Not Available Not Available Not Available Myrbetriq 25 mg tablet,exte nded release Take 1 tablet every day by oral route for 90 days. 2023 active Not Available Not Available Not Avai lable Myrbetriq 50 mg tablet,exte nded release TAKE 1 TABLET BY MOUTH TWICE A DAY 06/13 completed Not Available Not Available Not Available OneTouch Verio Flex Meter USE DIRECTED. active Not Available Not Available No t Available Readi-Cat 2 2 % (w/v) oral suspension 04/12 completed Not Available Not Available Not Available melatonin 3 mg capsule Take 2 capsules every day by oral route at bedtime. active PRN Not Available Not Available No t Available Rybelsus 3 mg tablet TAKE 1 TABLET BY MOUTH EVERY DAY active Not Available Not Available No t Available FreeStyle Jamie 2 Sensor kit use daily and change every 14 days 2023 active Not Available Not Available Not Avai lable FreeStyle Jamie 2 [place] USE DIRECTED 07/17 completed Not Available Not Available Not Available Fluzone High-Dose Quad 2020-21 (PF) 240 mcg/0.7 mL IM syringe TO BE ADMINISTE RED BY PHARMACIS T FOR IMMUNIZAT ION 01/10 completed Not Available Not Available Not Available Dexcom G7 Sensor device use as directed 2023 active Not Available Not Available Not Avai lable Vitals Date Recorded Body height Body mass index (BMI) Body weight Heart rate Oxygen saturation Oxygen saturation in Arterial blood by Pulse oximetry Systolic blood pressure Diastolic blood pressure Provider Name and Address Organization Details Last Updated DateTime 4 153.67 cm 39.5 kg/m2 22506.2 3 g 85 /min 97 % 97 % 148 mm[Hg] 92 mm[Hg] Zayra Vicente [facility] 10:21:27 Social History Question Answer Notes LastModified by Organizat ion Details LastModified Time Tobacco Smoking Status Former Smoker Not Available [facility] 06/22/2020 03:36:23 What Was The Date Of Your Most Recent Tobacco Screening? 06/10/2024 [email or web address] Information not available 06/10/2024 Do You Or Have You Ever Used Any Other Forms Of Tobacco Or Nicotine? No [email or web address] Information not available 12/15/2022 Sex: Unknown Functional Status None recorded. Mental Status None recorded. Family History Nothing Reported. Medical History No medical history recorded. Gynecological HistoryNo gynecological history recorded. Obstetrics History GPAL:G 0 P 0 0 0 0 Immunizations Vaccine Type Date Status Note Provider Nam e and Address Organization Details Recorded Time Influenza, split virus, quadrivalent, preservative 10/20/19 completed [facility] 10/21/2021 08:15:16 COVID-19, mRNA, LNP-S, PF, 100 mcg/0.5mL dose or 50 mcg/0.25mL dose 10/20/19 completed JEFF Nolasco [facility] 10/21/2021 08:15:24 SARS-COV-2 (COVID-19) vaccine, UNSPECIFIED 06/27/20 22 completed [facility] 06/10/2024 09:33:04 SARS-COV-2 (COVID-19) vaccine, UNSPECIFIED 06/01/20 23 completed Zayra Vicente [facility] 06/10/2024 09:33:18 influenza, unspecified formulation 06/01/20 23 [facility] 09:33:42 Respiratory syncytial virus (RSV) vaccine, unspecified 06/01/20 23 completed Zayra Vicente [facility] 06/10/2024 09:34:02 SARS-COV-2 (COVID-19) vaccine, UNSPECIFIED 06/11/20 24 completed Zayra Vicente [facility] 06/16/2024 08:35:19 influenza, unspecified formulation 06/11/20 24 completed Zayra Vicente [facility] 06/16/2024 08:35:30 pneumococcal polysaccharide PPV23 05/20/20 10 [facility] 02/11/2018 08:36:48 pneumococcal, unspecified formulation 10/19/19 15 completed Milka [facility] 02/11/2018 08:37:38 tetanus toxoid, unspecified formulation 10/19/19 15 completed [facility] 02/11/2018 08:37:58 Influenza, split virus, quadrivalent, preservative 05/20/20 19 completed November JAVIER Pastor [address] [place] [address], [phone], [facility] 07/15/2019 14:22:18 Influenza, split virus, quadrivalent, preservative 04/13/20 20 completed Milkaelsy Guevara [facility] 04/16/2020 08:14:22 Pneumococcal conjugate PCV 13 04/13/20 20 completed [facility] 04/16/2020 08:14:35 COVID-19, mRNA, LNP-S, PF, 100 mcg/0.5mL dose or 50 mcg/0.25mL dose 11/11/19 21 completed Tanya bloom [facility] 01/04/2021 14:02:16 COVID-19, mRNA, LNP-S, PF, 100 mcg/0.5mL dose or 50 mcg/0.25mL dose 12/16/19 21 completed Tanya bloom [facility] 01/04/2021 14:02:26 Past Encounters Encounter ID Performer Location Encounter Start Date Encounter Closed Date Diagnosis/Indication Diagnosis SNOMED-CT Code Diagnosis ICD10 Code [id number] ARACELY SAINZ [facility] [address] [place] [address] 06/10/2024 09:43:37 06/10/2024 14:19:52 Type 2 diabetes mellitus 06227972 E11.649 Essential hypertension 64403623 I10 Hypoglycemia 977998081 E 16.1 Atrophic vaginitis 44425 000 N95.2 Candidiasis of skin 4988 3006 B37.2 Allergic rhinitis 707525 04 J30.1 Health Concerns Section Related Observation LastModified by Organization Detai ls LastModified Time None Recorded Concern Status LastModified by Organization Details LastModified Time None Recorded Payers Encounter Date Sequence Insurance Name Policy Number Policy Ramirez Covered Member ID Ramirez Member ID Guarantor Name 06/10/2024 1 [place] [employer] Luna [facility] [id number] Renée [facility] 06/10/2024 2 [place] [id number] Renée Navarro [facility] [id number] Renée Baj Notes Date Note Type Note Provider Name a nd Address Organization Details Recorded Time 4 text/html 3 mos f/u T2DM: stableswitched the glipizide to evening for elevated sugars in the morningmetformin continues as prescribed HTN: BP is stable at home needs refill of the atrophic vaginitis topical cream needs refill of the flonase suggested topical gel for the hip arthritis (R)voltaren gel will set up with dexcom again as we are starting low dose lantus ARACELY SAINZ [address] [place], [address], [facility] 06/10/2024 10:57:50 OBGyn Episode No OBEpisode recorded.
--- OUTSIDE RECORDS SUMMARY | 2024-08-08 11:05 | XMS_ITS | Data Portability ---
Author Organization [facility] Maria Alejandra Internal Medicine, Home Service Address [address] [place] [address] Care Team Providers Care Press Operator Helper Name Role Phone FLOWER GARCIA Fire Control Technician G Unavailable Assessment Encounter Date Assessment Date Assessment LastModified by Organization Details LastModified Time 12/15/2022 12/15/2022 [id number] [place] [address] ([employer]) MDM MODERATE MUST MEET 2 OUT OF 3 ELEMENTS: PROBLEMS, DATA OR RISK ELEMENT 1: PROBLEMS ADDRESSED 1 OR MORE CHRONIC ILLNESS WITH EXACERBATION OR 2 OR MORE STABLE CHRONIC ILLNESSES OR 1 UNDIAGNOSED NEW PROBLEM OR 1 ACUTE ILLNESS W/SYMPTOMS OR 1 ACUTE COMPLICATED INJURY ELEMENT 2: DATA MUST MEET 1 OF 3 CATEGORIES CATEGORY 1: REVIEW OF PRIOR EXTERNAL NOTES, REVIEW OF RESULTS, ORDERING OF EACH TEST, ASSESSMENT REQUIRING INDEPENDENT HISTORIAN OR CATEGORY 2: INDEPENDENT INTERPRETATION OF TESTS BY ANOTHER PHYSICIAN OR SPECIALIST OR CATEGORY 3: DISCUSSION OF MGT OR TEST INTERPRETATION W/EXTERNAL PHYSICIAN OR SPECIALIST ELEMENT 3: RISK RISK OF COMPLICATIONS AND/OR MORBIDITY OR MORTALITY OF PATIENT MANAGEMENT PROVIDER MUST THOROUGHLY DOCUMENT EACH ELEMENT THAT IS COVERED Not available 12/15/2022 11:13:31 Plan of Treatment Reminders Order Date Submit Date Provider Last Modified By Organization Details Last Modified Time Details Appointments FOLLOW UP 15 2024 11:15A ARACELY GRAHAM Not available Not available Not available Lab HbA1c (hemoglob in A1c), blood 2022 023 [facility], [address] [place] [address], [id number], 12/18/2022 11:08:14 CMP, serum or plasma 2022 023 [facility], [address] [place] [address], [address], 12/15/2022 11:25:18 microalbu min, urine 2022 023 [facility], [address] [place] [address], [address], 12/15/2022 11:25:18 urinalysi s complete, reflex culture 2022 023 [facility], [address] [place] [address], [address], 07/17/2023 10:22:47 CMP, serum or plasma 2022 023 [facility], [address] [place] [address], [address], 07/18/2023 11:29:01 lipid panel, blood 2022 023 [facility], [address] [place] [address], [address], 07/17/2023 10:13:03 hemoglobi n A1c, QN, blood 2022 023 [facility], [address] [place] [address], [address], 07/24/2023 11:04:06 CBC w/ auto diff 2022 023 [facility], [address] [place] [address], [address], 07/17/2023 10:13:02 CMP, serum or plasma 2023 024 [facility], [address] [place] [address], [address], 03/07/2024 11:15:41 lipid panel, blood 2023 024 [facility], [address] [place] [address], [address], 03/07/2024 11:15:41 hemoglobi n A1c, QN, blood 2023 024 [facility], [address] [place] [address], [address], 03/07/2024 11:15:41 CBC w/ auto diff 2023 024 [facility], [address] [place] [address], [address], 03/11/2024 11:32:57 Referral sleep medicine referral - needs updated sleep eval for new equipment 2022 023 [facility], [address], [place], [address], 12/18/2022 08:59:07 dermatolo gist referral 2022 023 [facility], [address], [address], [place], [address], 07/18/2023 08:57:43 Procedures None recorded. Surgeries None recorded. Imaging US, abdomen + pelvis 2022 023 [facility], [address] [place] [address], [address], 11/21/2022 08:42:45 US, echocardi ogram 2022 023 [facility], [address] [place], [address], 12/18/2022 08:58:46 Medication Orders Rybelsus 3 mg tablet [address] [facility]39, [address] [place] [address], [address], 11/20/2022 09:33:39 metformin 500 mg tablet [address] [facility]2335, [address] [place], [address], 11/20/2022 09:54:42 clotrimaz ole-betam ethasone 1 %-0.05 % topical cream 2022 023 timda [facility] #2339, [address] [facility], [place], [address], 09/08/2023 17:11:12 atorvasta tin 40 mg tablet [address] [facility]23[facility], [address] [facility], [place], [address], 07/17/2023 10:13:51 solifenac in 5 mg tablet [address] [facility]23[facility], [address] [facility], [place], [address], 07/17/2023 10:11:49 clobetaso l 0.05 % topical ointment 2023 024 [facility], [address] [place] [address], [address], 03/07/2024 10:47:03 estradiol 0.01% (0.1 mg/gram) vaginal cream 2023 024 [facility], [address] [place] [address], [address], 03/07/2024 10:47:02 fluticaso ne propionat e 50 mcg/actua tion nasal spray,valarie pension 2023 024 [facility], [address] [place] [address], [place], [address], 06/10/2024 10:48:21 clobetaso l 0.05 % topical ointment 2023 024 [facility], [address] [place] [address], [place], [address], 06/10/2024 10:48:21 Lantus Solostar U-100 Insulin 100 unit/mL (3 mL) subcutane ous pen 2023 [facility], [address] [place] [address], [address], 06/10/2024 10:54:23 clotrimaz ole-betam ethasone 1 %-0.05 % topical cream 2023 [facility], [address] [place] [address], [address], 06/10/2024 10:48:20 Patient TargetsNo targets recorded. 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 Not Available 12/05 13:42:51 01/02/2001/01/2023 US, echoc ardio gram No observ ation record ed. [email or web address] [facility] (Medical Records) [address] [facility], [place], [address], 01/01/2023 12:03:50 08/17/20 23 08/03/2023 MAMMO , scree elias, digit al, bilat eral No observ ation record ed. [email or web address] [facility] [address] [place] [address] [place], [address], 08/18/2023 09:31:30 Result Notes None recorded. Problems Name Problem SNOMED Code Status Onset Date Resolution Date Notes Provider Name and Address Organization Details Recorded Time Hemifacial spasm 16786465 Active 2018 Not Available [facility] 3 12:50:30 Generalize d anxiety disorder 16787168 Active 2018 Not Available [facility] 3 12:50:30 Liver enzymes level above reference range 335409153 Active 2018 Not Available [facility] 3 12:50:30 Polyp of colon 24904156 Active 2017 Not Available [facility] 3 12:50:30 Depressive disorder 59840679 Active 2017 Not Available [facility] 3 12:50:30 Gastroesop hageal reflux disease 106446755 Active 2017 Not Available [facility] 3 12:50:30 Sleep apnea 92952163 Active 2017 Not Available [facility] 3 12:50:30 Essential hypertensi on 30882142 Active 2017 Not Available [facility] 3 12:50:30 Type 2 diabetes mellitus 33208600 Active 2017 Not Available [facility] 3 12:50:30 Hyperlipid emia 05015920 Active 2017 Not Available [facility] 3 12:50:30 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 2017 Not Available [facility] 3 12:50:30 Anxiety 91885856 Active 2021 Not Available [facility] 3 12:50:30 Lumbar radiculopa thy 750262271 Active 2021 Not Available [facility] 3 12:50:30 Mood disorder 94436025 Active 2021 Not Available [facility] 3 12:50:30 Dysuria 49084209 Active 2021 Not Available [facility] 3 12:50:30 Atrophic vaginitis 72122335 Active 2021 Not Available [facility] 3 12:50:30 Acute otitis media 8168287 Active 2021 Not Available [facility] 3 12:50:30 Candidiasi s of skin 94248956 Active 2021 Not Available [facility] 3 12:50:30 Abdominal pain 50296923 Active 2022 Not Available [facility] 3 12:50:30 Fecal impaction 87020571 Active 2022 Not Available [facility] 3 12:50:30 Autoimmune disease 70771232 Active 2022 Not Available [facility] 3 12:50:30 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 steatohepa titis 447500740 Active 2022 Not Available [facility] 3 12:50:30 Diverticul osis of colon 266586152 Active 2022 Not Available [facility] 3 12:50:30 Dyspnea on exertion 22201882 Active 2022 Not Available [facility] 3 12:50:30 Intertrigo 40924665 Active 2022 Not Available [facility] 3 12:50:30 Urinary incontinen ce 048056704 Active 2022 ARACELY SAINZ [address] [place], [address], [facility] 3 10:09:49 Seborrheic dermatitis of scalp 470651657 Active 2022 ARACELY SAINZ [address] [place], [address], [facility] 3 10:22:21 Hypoglycem ia 622873368 Active 2023 ARACELY SAINZ [address] [place], [address], [facility] 4 10:35:18 Anemia 708818104 Active 2023 ARACELY SAINZ [address] [place], [address], [facility] 4 16:17:57 Fatigue 98699864 Active 2023 ARACELY SAINZ [address] [place], [address], [facility] 4 14:43:47 Allergic rhinitis 76773652 Active 2023 ARACELY SAINZ [address] [place], [address], [facility] 4 10:47:17 Problem Notes None recorded. Procedures Surgical History None recorded. Imaging Results Imaging Date Name Status LastModified by Organization Details LastModified Time 11/29/2022 US, abdomen, complete completed [email or web address] Information not available 12/05/2022 13:42:51 01/01/2023 US, echocardiogram completed [address] (Medical Records) [address] [place] [address], [address], 01/01/2023 12:03:50 08/03/2023 MAMMO, screening, digital, bilateral completed [address] [facility] [address] [place] [address] [place], [address], 08/18/2023 09:31:30 Procedure Notes None recorded. Medical Equipment None Reported. [...] t Available Probiotic active Not Available Not Chuiyta ilable Not Available methotrexat e 2.5 mg [...] Available Not Avai lable FreeStyle Jamie 2 [place] USE DIRECTED 07/17 completed Not Available Not Available Not Available Fluzone High-Dose Quad 2020-21 (PF) 240 mcg/0.7 mL IM syringe TO BE ADMINISTE RED BY PHARMACIS T FOR IMMUNIZAT ION 01/10 completed Not Available Not Available Not Available Dexcom G7 Sensor device use as directed 2023 active Not Available Not Available Not Rolf braxton Vitals Date Recorded Body height Body mass index (BMI) Body weight Heart rate Oxygen saturation Oxygen saturation in Arterial blood by Pulse oximetry Systolic blood pressure Diastolic blood pressure Provider Name and Address Organization Details Last Updated DateTime 3 154.94 cm 36.8 kg/m2 80217.5 1 g 89 /min 95 % 95 % 130 mm[Hg] 70 mm[Hg] Steph Caballero [facility] 3 09:17:49 Date Recorded Body height Body mass index (BMI) Body weight Heart rate Oxygen saturation Oxygen saturation in Arterial blood by Pulse oximetry Systolic blood pressure Diastolic blood pressure Provider Name and Address Organization Details Last Updated DateTime 3 154.94 cm 37 kg/m2 19341.1 g 92 /min 98 % 98 % 160 mm[Hg] 84 mm[Hg] Steph Caballero [facility] 3 10:57:42 Date Recorded Body height Body mass index (BMI) Body weight Oxygen saturation Oxygen saturation in Arterial blood by Pulse oximetry Heart rate Systolic blood pressure Diastolic blood pressure Provider Name and Address Organization Details Last Updated DateTime 3 154.94 cm 37.2 kg/m2 32865.7 g 96 % 96 % 71 /min 130 mm[Hg] 72 mm[Hg] Steph Caballero [facility] 3 10:01:00 Date Recorded Body height Body mass index (BMI) Body weight Heart rate Oxygen saturation Oxygen saturation in Arterial blood by Pulse oximetry Systolic blood pressure Diastolic blood pressure Provider Name and Address Organization Details Last Updated DateTime 4 153.67 cm 39.3 kg/m2 30839.6 4 g 70 /min 99 % 99 % 126 mm[Hg] 80 mm[Hg] Jay Jay Ruiz [facility] 4 10:20:59 Date Recorded Body height Body mass index (BMI) Body weight Heart rate Oxygen saturation Oxygen saturation in Arterial blood by Pulse oximetry Systolic blood pressure Diastolic blood pressure Provider Name and Address Organization Details Last Updated DateTime 4 153.67 cm 39.5 kg/m2 98744.2 3 g 85 /min 97 % 97 % 148 mm[Hg] 92 mm[Hg] Zayra Vicente [facility] 4 10:21:27 Social History Question Answer Notes LastModified by Organizat ion Details LastModified Time Tobacco Smoking Status Former Smoker Not Available [facility] 06/22/2020 03:36:23 What Was The Date Of Your Most Recent Tobacco Screening? 06/10/2024 [email or web address] Information not available 06/10/2024 Do You Or Have You Ever Used Any Other Forms Of Tobacco Or Nicotine? No [email or web address] Information not available 12/15/2022 Sex: Unknown Functional Status None recorded. Mental Status None recorded. Family History Nothing Reported. Medical History No medical history recorded. Gynecological HistoryNo gynecological history recorded. Obstetrics History GPAL:G 0 P 0 0 0 0 Immunizations Vaccine Type Date Status Note Provider Nam e and Address Organization Details Recorded Time Influenza, split virus, quadrivalent, preservative 10/20/19 completed Diandra bloom [facility] 10/21/2021 08:15:16 COVID-19, mRNA, LNP-S, PF, 100 mcg/0.5mL dose or 50 mcg/0.25mL dose 10/20/19 [facility] 08:15:24 SARS-COV-2 (COVID-19) vaccine, UNSPECIFIED 06/27/20 completed Zayra Vicente [facility] 06/10/2024 09:33:04 SARS-COV-2 (COVID-19) vaccine, UNSPECIFIED 06/01/20 completed Zayra Vicente [facility] 06/10/2024 09:33:18 influenza, unspecified formulation 06/01/20 23 completed Zayra Vicente [facility] 06/10/2024 09:33:42 Respiratory syncytial virus (RSV) vaccine, unspecified 06/01/20 23 completed Zayra Vicente [facility] 06/10/2024 09:34:02 SARS-COV-2 (COVID-19) vaccine, UNSPECIFIED 06/11/20 24 completed Zayra Vicente [facility] 06/16/2024 08:35:19 influenza, unspecified formulation 06/11/20 24 completed Zayra Vicente [facility] 06/16/2024 08:35:30 pneumococcal polysaccharide PPV23 05/20/20 10 completed Milka Guevara [facility] 02/11/2018 08:36:48 pneumococcal, unspecified formulation 10/19/19 15 completed Milka Guevara [facility] 02/11/2018 08:37:38 tetanus toxoid, unspecified formulation 10/19/19 15 completed Milka Guevara [facility] 02/11/2018 08:37:58 Influenza, split virus, quadrivalent, preservative 05/20/20 19 completed November JAVIER Pastor [address] [place] [address], [address], [facility] 07/15/2019 14:22:18 Influenza, split virus, quadrivalent, preservative 04/13/20 20 completed Milka Guevara null, [facility] 04/16/2020 08:14:22 Pneumococcal conjugate PCV 13 04/13/20 20 completed Milka Ismael bloom [facility] 04/16/2020 08:14:35 COVID-19, mRNA, LNP-S, PF, 100 mcg/0.5mL dose or 50 mcg/0.25mL dose 11/11/19 21 completed Tanya bloom [facility] 01/04/2021 14:02:16 COVID-19, mRNA, LNP-S, PF, 100 mcg/0.5mL dose or 50 mcg/0.25mL dose 12/16/19 21 completed Tanya bloom [facility] 01/04/2021 14:02:26 Past Encounters Encounter ID Performer Location Encounter Start Date Encounter Closed Date Diagnosis/Indication Diagnosis SNOMED-CT Code Diagnosis ICD10 Code [id number] Mariaa Ramsey NP, S [facility] [address] [place] [address] 12/10/2017 09:50:24 12/10/2017 10:55:16 Pre-surgery evaluation 306061705 Z01.818 Essential hypertension 69741744 I10 Obstructiv e sleep apnea syndrome 58033515 G47.33 Bladder mu scle dysfunction - overactive 925063070 N32.81 Pre-existi ng type 2 diabetes mellitus 314347531 E11.9 Hypercholesterolemia 136 79278 E78.00 Depressive disorder 3548 9007 F32.89 [id number] Mariaa Ramsey NP, S [facility] [address],[place] [facility] [place] [place] [address] 02/11/2018 13:25:24 02/11/2018 15:05:13 Bladder muscle dysfunction - overactive 710928533 N32.81 Type 2 phillip betes mellitus 52824030 E11.9 Essential hypertension 82606384 I10 Hypercholesterolemia 136 93543 E78.00 Screening procedure 2012 5006 Z13.9 [id number] Mariaa Ramsey NP, S [address],[place] [facility] [place] [address] 04/17/2018 13:27:24 04/17/2018 17:15:31 Gastroesophageal reflux disease 102210280 K21.9 Bladder mu scle dysfunction - overactive 783505155 N32.81 Depressive disorder 3548 9007 F32.89 Type 2 phillip betes mellitus 81193523 E11.9 Hyperlipidemia 89532195 E78.2 Essential hypertension 10833083 I10 Sleep apnea 22839998 G47 .30 Constipation 82600478 K5 9.00 Hemifacial spasm 8051174 8 G51.3 [id number] Mariaa Ramsey NP, [facility] [address] [place] [address] [place] [address] 07/17/2018 10:02:50 07/17/2018 11:29:29 Bladder muscle dysfunction - overactive 012572261 N32.81 Type 2 phillip betes mellitus 65175615 E11.9 Hyperlipidemia 24247117 E78.2 Essential hypertension 79583796 I10 Sleep apnea 29563470 G47 .30 Autoimmune disease 58641 009 M35.9 [id number] Mariaa Ramsey NP, [facility] [address] [place] [address] [place] [address] 08/06/2018 14:33:03 08/06/2018 16:42:41 Pain in right hip joint 1984652969 53073 M25.551 Anxiety 80423718 F41.9 [id number] Mariaa Ramsey NP, [facility] [address] [place] [address] 10/09/2018 09:53:09 10/09/2018 10:36:56 Type 2 diabetes mellitus 17785851 E11.9 History of polyp of colon 129091652 Z86.010 Bereavement 51975751 Z63 .4 Initial insomnia 5712121 8 G47.00 [id number] Mariaa Ramsey NP, [facility] [address] [place] [address] [place] [address] 11/05/2018 10:21:20 11/05/2018 14:42:27 Gastroesophageal reflux disease 296369220 K21.9 Bladder mu scle dysfunction - overactive 236292559 N32.81 Depressive disorder 3548 9007 F32.89 Hyperlipidemia 15430777 E78.2 Essential hypertension 86703550 I10 Sleep apnea 16354505 G47 .30 Polyp of colon 79696400 K63.5 Acute sinusitis 60642089 J01.90 Bereavement 00022712 Z63 .4 [id number] Mariaa Ramsey NP, [facility] [address] [place] [address] 12/09/2018 09:12:24 12/09/2018 10:23:41 Gastroesophageal reflux disease 509007979 K21.9 Bladder mu scle dysfunction - overactive 604472124 N32.81 Type 2 phillip betes mellitus 85369877 E11.9 Hyperlipidemia 92623113 E78.2 Essential hypertension 89471694 I10 Sleep apnea 35659662 G47 .30 [id number] [facility] [address] [place] [address] 01/17/2019 10:04:50 01/17/2019 11:08:21 Gastroesophageal reflux disease 183786115 K21.9 Bladder mu scle dysfunction - overactive 747313365 N32.81 Type 2 phillip betes mellitus 16215483 E11.9 Hyperlipidemia 24477883 E78.2 Essential hypertension 18336390 I10 Sleep apnea 57284310 G47 .30 Generalize d anxiety disorder 86888120 F41.1 Flatulence symptom 00331 8004 R14.3 [id number] [facility] [address] [address] 03/03/2019 15:40:27 03/03/2019 16:19:48 Candidiasis of vagina 32782810 B37.3 Scleritis 65874894 H15.0 09 Essential hypertension 75604585 I10 [id number] [facility] [address] [place] [address] 03/14/2019 15:47:34 03/14/2019 16:12:24 Candidiasis of vagina 10617650 B37.3 Scleritis 49776476 H15.0 09 Essential hypertension 61711739 I10 Increased frequency of urination 533237941 R35.0 Autoimmune disease 31870 009 M35.9 Otitis externa 9867705 H 60.90 [id number] [facility] [address] [facility] [place] [address] 04/16/2019 09:50:46 04/16/2019 10:56:55 Gastroesophageal reflux disease 098438802 K21.9 Bladder mu scle dysfunction - overactive 126301253 N32.81 Type 2 phillip betes mellitus 95578271 E11.9 Hyperlipidemia 49625424 E78.2 Essential hypertension 66479557 I10 Sleep apnea 92789432 G47 .30 Generalize d anxiety disorder 29327775 F41.1 Candidiasis of vagina 72 924694 B37.3 Scleritis 04936195 H15.0 09 Nasal congestion 9087081 0 R09.81 Acute low back pain 2788 49243 M54.5 Dry skin 41349156 L85.3 [id number] [facility] [address] [place] [address] [place] [address] 07/15/2019 14:07:08 07/15/2019 14:43:49 Type 2 diabetes mellitus 04325746 E11.9 Hyperlipidemia 07073415 E78.2 Essential hypertension 23979073 I10 Sleep apnea 11634497 G47 .30 Generalize d anxiety disorder 32825007 F41.1 Scleritis 56137136 H15.0 09 Hyperkalemia 53575673 E8 7.5 Acute righ t otitis media 083168465 H66.91 Acute low back pain [id number] [facility] [address] [place] [address] [place] [address] 10/15/2019 09:57:39 10/15/2019 11:18:16 Abdominal pain 64513943 R10.9 [place] feces 1804344851 31928 R19.5 Dark yellow urine 850969 001 R39.89 Malodorous urine 8316459 01 R82.998 Hyperglycemia 86369954 R 73.9 Acid reflux 257396480 K2 1.9 [id number] [facility] [address] [facility] [place] [place] [address] 10/31/2019 11:08:45 10/31/2019 11:42:57 Non-alcoholic fatty liver 683368425 K76.0 Gallstone 959494881 K80. 20 Constipation 48520210 K5 9.00 Type 2 phillip betes mellitus 41149671 E11.[id number] [facility] [address] [facility],[place] [address] 12/02/2019 13:46:51 12/02/2019 14:50:48 Left upper quadrant pain 354487275 R10.12 Diverticulitis 408620864 K57.[id number] [facility] [address] [facility],[place] [address] 12/09/2019 09:41:12 12/09/2019 11:24:54 Type 2 diabetes mellitus 36132100 E11.9 Diverticulitis 146006696 K57.92 Essential hypertension 61363450 I10 Constipation 11340357 K5 9.[id number] [facility] [address] [facility],[place] [address] 01/02/2020 10:51:33 01/02/2020 12:06:24 Cat scratch - wound 870446268 T14.8XXA Chronic constipation 236 942553 K59.09 Essential hypertension 99765237 I10 [id number] [facility] [address] [place] [address],[place] [address] 02/02/2020 09:34:44 02/02/2020 10:25:03 Type 2 diabetes mellitus 83269137 E11.9 Essential hypertension 67730958 I10 Constipation 63715420 K5 9.[id number] [facility] [address] [place] [address],[place] [address] 02/23/2020 10:09:38 02/23/2020 10:38:53 Fecal impaction 62289983 K56.41 Essential hypertension 24074448 I10 [id number] [facility] [address] [place] [address],[place] [address] 03/15/2020 09:43:45 03/15/2020 10:38:35 Infection of ear 800823199 H66.93 Essential hypertension 17787454 I10 Contusion of lower leg 75719850 S80.10XD [id number] [facility] [address] [place] [address] [place] [address] 08/03/2020 08:45:34 08/03/2020 11:44:53 Essential hypertension 09780606 I10 Anxiety 79056821 F41.9 Gastroesop hageal reflux disease 004485416 K21.9 Type 2 phillip betes mellitus 22911123 E11.[id number] [facility] [address] [place] [address] [place] [address] 01/10/2021 09:30:32 01/10/2021 10:09:06 Hypertensive disorder 57562017 I10 Liver enzy mes level above reference range 894359574 R74.01 Depressive disorder 3548 9007 F32.0 Increased frequency of urination 714225302 R35.0 Orthostati c hypotension 91635025 I95.1 Dizziness 202383368 R42 Itching of skin 74702858 0 L29.8 Acute urin leslye tract infection 065360751 N39.[id number] [facility] [address] [place] [address] [place] [address] 03/07/2021 14:08:05 03/07/2021 15:56:59 Essential hypertension 65494746 I10 Type 2 phillip betes mellitus 67330778 E11.9 Depressive disorder 3548 9007 F32.0 Gastroesop hageal reflux disease 223445266 K21.9 Allergic rhinitis 156339 04 J30.9 Fecal impaction 86750861 K56.41 Autoimmune disease 38153 009 M35.9 Insomnia 847274643 G47.0 0 Xerostomia 82890571 R68. [id number] [facility] [address] [place] [address] [place] [address] 04/20/2021 14:24:41 04/20/2021 15:41:31 Dysfunction of urinary bladder 74549781 R39.89 Type 2 phillip betes mellitus 66264964 E11.9 Essential hypertension 69830795 I10 [id number] [facility] [address] [place], [place] [address] [address] 06/13/2021 13:56:48 06/13/2021 16:08:35 Generalized anxiety disorder 10329778 F41.1 Essential hypertension 98810407 I10 Hyperlipidemia 78240557 E78.2 Type 2 phillip betes mellitus 30601609 E11.9 Screening mammography 24 157708 Z12.[id number] [facility] [address] [place], [place] [address] [address] 09/14/2021 08:25:47 09/14/2021 15:53:07 COVID-19 158070047 U07.1 Cough 69341599 R05.2 Generalize d anxiety disorder 35420242 F41.1 Type 2 phillip betes mellitus 12746793 E11.[id number] [facility] [address] [place] [address] [place] [address] 12/30/2021 15:57:08 12/30/2021 16:41:12 Type 2 diabetes mellitus 68040014 E11.9 Anxiety 11197552 F41.1 Lumbar radiculopathy 128 513467 M54.[id number] [facility] [address] [place] [address] [place] [address] 04/12/2022 10:55:23 04/12/2022 11:32:31 Dysuria 08938693 R30.0 Atrophic vaginitis 57402 000 N95.2 Acute otitis media 87059 03 H65.02 Candidiasis of skin 4988 [address]37.[id number] [facility] [address] [place], [place] [address] [facility] [place] [address] 05/02/2022 10:20:50 05/02/2022 12:53:08 Acute otitis media 9622191 H65.02 Depressive disorder 3548 9007 F32.0 Dysuria 63437197 R30.0 Essential hypertension 06866156 I10 Type 2 phillip betes mellitus 77217293 E11.9 Mood disorder 65041847 F 39 Anxiety 83369493 F41.[id number] [facility] [address] [place], [place] [address] [address] 09/19/2022 08:22:17 09/20/2022 11:58:42 Type 2 diabetes mellitus 60050969 E11.9 Mood disorder 12035342 F 32.0 Depressive disorder 3548 [address]32.[id number] [facility] [address] [place] [address] [place] [address] 11/20/2022 09:00:03 11/20/2022 16:04:22 Abdominal pain 03180324 R10.12 Fecal impaction 78501959 K56.41 Autoimmune disease 80771 009 M32.8 Type 2 phillip betes mellitus 81360515 E11.9 Essential hypertension 57104945 I10 [address] 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 [address] [place] [address] [place] [address] 07/17/2023 09:54:48 07/17/2023 13:27:22 Dysuria 76820301 R30.0 Type 2 phillip betes mellitus 13418423 E11.9 Urinary incontinence 165 505526 N39.41 Hyperlipidemia 52317648 E78.2 Seborrheic dermatitis of scalp 763713604 L21.0 Candidiasis of skin 4988 [address]37.[id number] [facility] [address] [place] [address] [place] [address] 03/07/2024 09:55:17 03/07/2024 13:53:34 Type 2 diabetes mellitus 10059227 E11.649 Depression screening 171 883455 Z13.31 Hypoglycemia 436538433 E 16.1 Atrophic vaginitis 60445 000 N95.2 Essential hypertension 93139725 I10 [id number] ARACELY SAINZ [facility] [address] [facility],[place] [address] 06/10/2024 09:43:37 06/10/2024 14:19:52 Type 2 diabetes mellitus 76301159 E11.649 Essential hypertension 87078836 I10 Hypoglycemia 188161558 E 16.1 Atrophic vaginitis 12073 000 N95.2 Candidiasis of skin 4988 3006 B37.2 Allergic rhinitis 394299 04 J30.1 Health Concerns Section Related Observation LastModified by Organization Detai ls LastModified Time None Recorded Concern Status LastModified by Organization Details LastModified Time None Recorded Advance Directives Directive None Recorded Payers Encounter Date Sequence Insurance Name Policy Number Policy Ramirez Covered Member ID Ramirez Member ID Guarantor Name 11/20/2022 1 [place] [employer] Diannalynn Ba [id number] Renée [facility] 11/20/2022 2 [place] [id number] Renée L [facility] [id number] Renée Ba 12/15/2022 1 [place] [employer] [place] Diannalynn Baj [id number] Renée [facility] 12/15/2022 2 [place] [id number] Renée L Ba [id number] Renée Baj 07/17/2023 1 [place] [place] Diannalynn Baj [id number] Renée [facility] 07/17/2023 2 [place] [id number] Renée L Ba [id number] Renée Baj 03/07/2024 1 [place] [place] Diannalynn Ba [id number] Renée [facility] 03/07/2024 2 [place] [id number] Renée Manzanares [id number] Renée Manzanares 06/10/2024 1 [place] [employer] Luna Manzanares [id number] Renée Manzanares 06/10/2024 2 [place] [id number] Renée Manzanares [id number] Renée Manzanares Notes Date Note Type Note Provider Name a nd Address Organization Details Recorded Time 3 text/html 3 mos f/u HTN: today in the office the patient BP is 130/70 Left Arm Sitting the patient is doing well on the BP medication with no side effects and no adjustment of their medications needed today at the appointment well-controlled on medication denies chest pain, sob, ankle swelling, orthopnea, palpitations Fecal impaction: resolved, no issues at all T2DM: stableagreed to switch out to medication that may be better for control and for weight lose depression: mother recently passed which the patient is very upset about itshe does have hobbies that do help her feel better the patient and I discussed her emotional statethe patient has no SI or thoughts of hurting herself or others ARACELY SAINZ [address] [place], [address], [facility] 11/20/2022 09:57:35 3 text/html Hypertension F/UReported bypatient.Medications :taking medications as directed; no side effects from medication Lifestyle:regular exercise; limiting/avoiding salt; compliant with low salt diet Associated Symptoms:no dizziness; no lightheadedness; no chest pain; no shortness of breath; no palpitations; no edema; no calf pain with exertion; no headache here for rechk and is doing okdiscussed results of her US abd showing fatty liver Dayton Kitchen DO [address] [place], [address], [facility] 12/15/2022 11:22:00 3 text/html follow up dysuria: will recheck urine T2DM: needs routine lab work urinary incontinence: will switch outbeen on most medication for incontinence, will trial solifenacin instead HLD: needs recheck of her levels and set up with new refill of atorvastatin most likely has some neuropathy bilateral lower extremitiesloss of pressure sensation ARACELY SAINZ [address] [place], [address], [facility] 07/17/2023 10:32:03 4 text/html c.o dizziness the patient is having on going dizziness the patient reports that she can't tell if she having hypoglycemic issuesgets really dizzy and feels faint when it happens will need better monitoring system since either insurance only allots one strip a day to test her sugar every day which doesn't help the patient is otherwise feeling well reviewed her medications with her and refilled the ones she needs depression screening: The patient denies little pleasure in activities they find enjoyable, feeling depressed, difficulties sleeping, feeling tired or having little energy, change in appetite, feeling guilty, overwhelmed or unmotivated. The patient denies suicidal ideation, thoughts of hurting themselves or others. Their mood is appropriate, they show good judgement and clear understanding of the conversation. They are orientated to time, place and person. They are not expressing any concerning thoughts or actions that would need further investigation and treatment for mental health. HTN: today in the office the patient BP is 126/80 L arm sitting the patient is doing well on the BP medication with no side effects and no adjustment of their medications needed today at the appointment well-controlled on medication denies chest pain, sob, ankle swelling, orthopnea, palpitations ARACELY SAINZ [address] [place], [address], [facility] 03/07/2024 10:56:39 4 text/html 3 mos f/u T2DM: stableswitched [...] starting low dose lantus ARACELY SAINZ [address] [place], [address], [facility] 06/10/2024 10:57:50 OBGyn Episode No OBEpisode recorded.
== END 2024-08-08 10:44 | disposition home or self-care (01) ==
LOC: HO.MAMMO 10:43
PROVIDERS: PCP Physician Assistant; Visit Provider Physician Assistant
DX: Z12.31 Encounter for screening mammogram for malignant neoplasm of breast (principal)
CPT/HCPCS: 77063; 77067

== ENCOUNTER → 2024-08-08 11:15 | Outpatient (BNV) | payer MEDICARE, SELFPAY | PROVIDERS: PCP Physician Assistant; Visit Provider Internal Medicine | DX: Z12.31 Encounter for screening mammogram for malignant neoplasm of breast (principal) | CPT/HCPCS: 77063; 77067 ==

== ENCOUNTER → 2024-11-20 07:40 | Outpatient (REF) | payer MEDICARE, SELFPAY ==
--- OUTSIDE RECORDS SUMMARY | 2024-11-20 07:44 | XMS_ITS | Data Portability ---
Author Organization [facility], Home Service Address [address] [place] [address] Care Team Providers Care Nutter Up Name Role Phone FLOWER GARCIA Furniture Delivery Driver Unavailable Assessment No assessment recorded. Plan of Treatment Reminders Order Date Submit Date Provider Last Modified By Organization Details Last Modified Time Details Appointments FOLLOW UP 15 2024 10:00A M ARACELY SAINZ Not available Not available Not available Lab CMP, serum or plasma 2023 024 [facility], [address] [place] [address], [id number], 03/07/2024 11:15:41 lipid panel, blood 2023 024 [facility], [address] [place] [address], [id number], 03/07/2024 11:15:41 hemoglobi n A1c, QN, blood 2023 024 [facility], [address] [place] [address], [id number], 03/07/2024 11:15:41 CBC w/ auto diff 2023 024 [facility], [address] [place] [address], [address], 03/11/2024 11:32:57 urinalysi s complete, reflex culture 2022 023 [facility], [address] [place] [address], [address], 07/17/2023 10:22:47 CMP, serum or plasma 2022 023 [facility], [address] [place] [address], [address], 07/18/2023 11:29:01 lipid panel, blood 2022 023 [facility], [address] [place] [address], [address], 07/17/2023 10:13:03 hemoglobi n A1c, QN, blood 2022 023 [facility], [address] [place] [address], [address], 07/24/2023 11:04:06 CBC w/ auto diff 2022 023 [facility], [address] [place] [address], [address], 07/17/2023 10:13:02 Referral dermatolo gist referral 2022 023 [facility], [address] [place] [address], [id number], 07/18/2023 08:57:43 Procedures None recorded. Surgeries None recorded. Imaging holter monitor 2024 025 [email or web address] [facility], [address] [place] [address], [address], 10/29/2024 13:59:37 Medication Orders pantopraz ole 40 mg tablet,de layed release 2024 025 [facility], [address] [place] [address], [address], 09/22/2024 06:40:15 telmisart an 40 mg tablet 2024 025 [facility], [address] [place] [address], [address], 09/22/2024 06:40:33 fluticaso ne propionat e 50 mcg/actua tion nasal spray,valarie pension 2023 024 [facility], [address] [place] [address], [place], [address], 09/16/2024 11:40:00 clobetaso l 0.05 % topical ointment [address] [facility], [address] [place] [address], [place], [address], 06/10/2024 10:48:21 Lantus Solostar U-100 Insulin 100 unit/mL (3 mL) subcutane ous pen 2023 024 [facility], [address] [place] [address], [address], 09/16/2024 11:38:36 clotrimaz ole-betam ethasone 1 %-0.05 % topical cream [address] [facility], [address] [place] [address], [address], 09/16/2024 11:40:32 clobetaso l 0.05 % topical ointment [address] [facility], [address] [place] [address], [address], 03/07/2024 10:47:03 estradiol 0.01% (0.1 mg/gram) vaginal cream [address] [facility], [address] [place] [address], [address], 03/07/2024 10:47:02 clotrimaz ole-betam ethasone 1 %-0.05 % topical cream 2022 023 [facility]2339, [address] [place] [address], [address], 09/16/2024 11:40:25 atorvasta tin 40 mg tablet 2022 023 [facility] #2339, [address] [place], [address], 07/17/2023 10:13:51 solifenac in 5 mg tablet 2022 023 [facility]2339, [address] [place], [address], 07/17/2023 10:11:49 Patient TargetsNo targets recorded. Patient InstructionsNo instructions recorded. 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 [email or web address] [address] [place], [address], 08/18/2023 09:31:30 08/19/20 24 08/08/2024 MAMMO , scree elias, digit al, bilat eral No observ ation record ed. [email or web address] [address] [place], [address], 08/20/2024 09:43:11 Result Notes None recorded. Problems Name Problem SNOMED Code Status Onset Date Resolution Date Notes Provider Name and Address Organization Details Recorded Time Hemifacial spasm 08136932 Active 2018 Not Available [facility] 3 12:50:30 Generalize d anxiety disorder 20600549 Active 2018 Not Available [facility] 3 12:50:30 Liver enzymes level above reference range 791674183 Active 2018 Not Available [facility] 3 12:50:30 Polyp of colon 37689989 Active 2017 Not Available [facility] 3 12:50:30 Depressive disorder 89347758 Active 2017 Not Available [facility] 3 12:50:30 Gastroesop hageal reflux disease 820457255 Active 2017 Not Available [facility] 3 12:50:30 Sleep apnea 92288831 Active 2017 Not Available [facility] 3 12:50:30 Essential hypertensi on 92888850 Active 2017 Not Available [facility] 3 12:50:30 Type 2 diabetes mellitus 67232988 Active 2017 Not Available [facility] 3 12:50:30 Hyperlipid emia 68789720 Active 2017 Not Available [facility] 3 12:50:30 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 2017 Not Available [facility] 3 12:50:30 Anxiety 24855485 Active 2021 Not Available [facility] 3 12:50:30 Lumbar radiculopa thy 431283706 Active 2021 Not Available [facility] 3 12:50:30 Mood disorder 67007503 Active 2021 Not Available [facility] 3 12:50:30 Dysuria 23963357 Active 2021 Not Available [facility] 3 12:50:30 Atrophic vaginitis 58521364 Active 2021 Not Available [facility] 3 12:50:30 Acute otitis media 3420154 Active 2021 Not Available [facility] 3 12:50:30 Candidiasi s of skin 23555896 Active 2021 Not Available [facility] 3 12:50:30 Abdominal pain 57803001 Active 2022 Not Available [facility] 3 12:50:30 Fecal impaction 29361772 Active 2022 Not Available [facility] 3 12:50:30 Autoimmune disease 86802750 Active 2022 Not Available [facility] 3 12:50:30 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 steatohepa titis 537101351 Active 2022 Not Available [facility] 3 12:50:30 Diverticul osis of colon 884478538 Active 2022 Not Available [facility] 3 12:50:30 Dyspnea on exertion 97912709 Active 2022 Not Available [facility] 3 12:50:30 Intertrigo 45714426 Active 2022 Not Available [facility] 3 12:50:30 Urinary incontinen ce 319878204 Active 2022 ARACELY SAINZ [address] [place], [address], [facility] 3 10:09:49 Seborrheic dermatitis of scalp 429629289 Active 2022 ARACELY SAINZ [address] [place], [address], [facility] 3 10:22:21 Hypoglycem ia 378437944 Active 2023 ARACELY SAINZ [address] [place], [address], [facility] 4 10:35:18 Anemia 824579424 Active 2023 ARACELY SAINZ [address] [place], [address], [facility] 4 16:17:57 Fatigue 96565583 Active 2023 ARACELY SAINZ [address] [place], [address], [facility] 4 14:43:47 Allergic rhinitis 96785279 Active 2023 ARACELY SAINZ [address] [place], [address], [facility] 4 10:47:17 Gastritis 0212336 Active 2024 ARACELY SAINZ [address] [place], [place], , [facility] 5 11:34:22 Diarrhea 32154893 Active 2024 ARACELY SAINZ [address] [place], [place], , [facility] 5 11:40:40 Palpitatio ns 74893735 Active 2024 ARACELY SAINZ [address] [place] [address], , [facility] 5 11:52:36 Syncope 420478500 Active 2024 ARACELY SAINZ [address] [place] [address], , [facility] 5 11:53:33 Car sickness 17659166 Active 2024 ARACELY SAINZ [address] [place] [address], , [facility] 5 12:15:55 Problem Notes None recorded. Procedures Surgical History None recorded. Imaging Results Imaging Date Name Status LastModified by Organiz ation Details LastModified Time 08/03/2023 MAMMO, screening, digital, bilateral completed [email or web address] [address] [place], [address], 08/18/2023 09:31:30 08/08/2024 MAMMO, screening, digital, bilateral completed [email or web address] [address] [place], [address], 08/20/2024 09:43:11 Procedure Notes None recorded. Medical Equipment None [...] Not Available Not Available No t Available atorvastati n 40 mg tablet TAKE 1 TABLET BY MOUTH EVERY DAY active Not Available Not Available No t Available metformin 500 mg tablet TAKE 2 TABLETS BY MOUTH IN THE MORNING AND TAKE 1 TABLET IN THE EVENING 2024 active Not Available Not Available Not Avai lable citalopram 40 mg tablet TAKE 1 TABLET [...] USE TO CHECK SUGAR ONCE PER DAY 09/16 completed Not Available Not Available Not Available clonazepam 0.5 mg tablet Take 1 [...] Not Available Not Available No t Available Diflucan 150 mg tablet 1 tablet every [...] completed Not Available Not Available Not Available lorazepam 0.5 mg tablet TAKE 1 TABLET BY MOUTH TWICE DAILY NEEDED FOR 7 DAYS active Not Available Not Available No t Available amlodipine 10 mg tablet TAKE 1 TABLET BY MOUTH EVERY DAY active Not Available Not Available No t Available pantoprazol e 40 mg tablet,cailin yed release TAKE 1 TABLET BY MOUTH DAILY IN THE MORNING active Not Available Not Available No t [...] sone 1 %-0.05 % topical cream APPLY TO AFFECTED AND SURROUNDI NG AREAS TWICE A DAY IN THE MORNING AND EVENING FOR TWO WEEKS 09/16 completed Not Available Not Available Not Available sertraline 25 mg tablet TAKE 1 TABLET BY MOUTH EVERY DAY active Not Available Not Available No t Available Avapro 150 mg tablet Take 1 tablet [...] 1 SPRAY INTO EACH NOSTRIL ONCE DAILY 09/16 completed Not Available Not Available Not Available imipramine 25 mg tablet TAKE 1 [...] Not Available Not Available No t Available Alcohol Prep Pads APPLY 5 PADS TOPICALLY EVERY DAY 09/16 completed Not Available Not Available Not Available trospium 20 mg tablet TAKE 1 TABLET BY MOUTH EVERYDAY AT BEDTIME 07/17 completed Not Available Not Available Not Available duloxetine 60 mg capsule,del ayed release TAKE 1 CAPSULE BY MOUTH EVERY DAY active Not Available Not Available No t Available solifenacin 5 mg tablet TAKE 1 TABLET BY MOUTH EVERY DAY active Not Available Not Available No t Available Vitamin C active Not Available Not Chuyita ilable Not Available Aleve 09/16 completed Not Available Not Available Not Available Fish Oil 600m twice a day 09/16 completed Not Available Not Available Not Available Botox every 3 months active Not [...] 100 unit/mL (3 mL) subcutaneou s pen Inject 6 units every day by subcutane ous route at bedtime for 30 days. 09/16 completed Not Available Not Available Not Available Durezol [...] day by oral route for 90 days. 2024 active Not Available Not Available Not Avai [...] Available Not Avai lable FreeStyle Jamie 2 [place] USE DIRECTED 07/17 completed Not Available Not Available Not Available Fluzone High-Dose Quad (PF) 240 mcg/0.7 mL IM syringe TO BE ADMINISTE RED BY PHARMACIS T FOR IMMUNIZAT ION 01/10 completed Not Available Not Available Not Available Dexcom G7 Sensor device use as directed 09/16 completed Not Available Not Available Not Available Vitals Date Recorded Body height Body mass index (BMI) Body weight Oxygen saturation Oxygen saturation in Arterial blood by Pulse oximetry Heart rate Systolic blood pressure Diastolic blood pressure Provider Name and Address Organization Details Last Updated DateTime 3 154.94 cm 37.2 kg/m2 42386.7 g 96 % 96 % 71 /min 130 mm[Hg] 72 mm[Hg] Steph Caballero [facility] 3 10:01:00 Date Recorded Body height Body mass index (BMI) Body weight Heart rate Oxygen saturation Oxygen saturation in Arterial blood by Pulse oximetry Systolic blood pressure Diastolic blood pressure Provider Name and Address Organization Details Last Updated DateTime 4 153.67 cm 39.3 kg/m2 33755.6 4 g 70 /min 99 % 99 % 126 mm[Hg] 80 mm[Hg] Jay Jay Ruiz [facility] 4 10:20:59 Date Recorded Body height Body mass index (BMI) Body weight Heart rate Oxygen saturation Oxygen saturation in Arterial blood by Pulse oximetry Systolic blood pressure Diastolic blood pressure Provider Name and Address Organization Details Last Updated DateTime 4 153.67 cm 39.5 kg/m2 02498.2 3 g 85 /min 97 % 97 % 148 mm[Hg] 92 mm[Hg] Zayra iVcente [facility] Internal [facility] 4 10:21:27 Date Recorded Body height Body mass index (BMI) Body weight Heart rate Oxygen saturation Oxygen saturation in Arterial blood by Pulse oximetry Systolic blood pressure Diastolic blood pressure Provider Name and Address Organization Details Last Updated DateTime 5 153.67 cm 37.8 kg/m2 95129.3 4 g 78 /min 96 % 96 % 152 mm[Hg] 78 mm[Hg] Zayra Vicente [facility] 5 11:18:26 Date Recorded Body height Body mass index (BMI) Body weight Heart rate Oxygen saturation Oxygen saturation in Arterial blood by Pulse oximetry Systolic blood pressure Diastolic blood pressure Provider Name and Address Organization Details Last Updated DateTime 5 153.67 cm 38 kg/m2 53530.2 9 g 80 /min 98 % 98 % 180 mm[Hg] 102 mm[Hg] ARACELY SAINZ [address] [place], [address], [facility] 5 11:46:00 Social History Question Answer Notes LastModified by Organizat ion Details LastModified Time Tobacco Smoking Status Former Smoker Not Available [facility] 06/22/2020 03:36:23 What Was The Date Of Your Most Recent Tobacco Screening? 10/29/2024 [email or web address] Information not available 10/29/2024 Do You Or Have You Ever Used Any Other Forms Of Tobacco Or Nicotine? No [email or web address] Information not available 12/15/2022 Sex: Unknown Functional Status None recorded. Mental Status None recorded. Family History Nothing Reported. Medical History No medical history recorded. Gynecological HistoryNo gynecological history recorded. Obstetrics History GPAL:G 0 P 0 0 0 0 Immunizations Vaccine Type Date Status Note Provider Nam e and Address Organization Details Recorded Time Influenza, split virus, quadrivalent, preservative 10/20/19 leon bloom [facility] 10/21/2021 08:15:16 COVID-19, mRNA, LNP-S, PF, 100 mcg/0.5mL dose or 50 mcg/0.25mL dose 10/20/19 leon bloom [facility] 10/21/2021 08:15:24 SARS-COV-2 (COVID-19) vaccine, UNSPECIFIED 06/27/20 leon bloom [facility] 06/10/2024 09:33:04 SARS-COV-2 (COVID-19) vaccine, UNSPECIFIED 06/01/20 leon bloom [facility] 06/10/2024 09:33:18 influenza, unspecified formulation 06/01/20 completed Zayra bloom [facility] 06/10/2024 09:33:42 Respiratory syncytial virus (RSV) vaccine, unspecified 06/01/20 23 leon bloom [facility] 06/10/2024 09:34:02 SARS-COV-2 (COVID-19) vaccine, UNSPECIFIED 06/11/20 24 completed Zayra bloom [facility] 06/16/2024 08:35:19 influenza, unspecified formulation 06/11/20 24 completed Zayra Vicente [facility] 06/16/2024 08:35:30 pneumococcal polysaccharide PPV23 05/20/20 10 completed Milka Guevara [facility] 02/11/2018 08:36:48 pneumococcal, unspecified formulation 10/19/19 15 completed Milka Guevara [facility] 02/11/2018 08:37:38 tetanus toxoid, unspecified formulation 10/19/19 15 completed Milka Ismael [facility] 02/11/2018 08:37:58 Influenza, split virus, quadrivalent, preservative 05/20/20 19 completed Linh JAVIER Pastor [address] [place] [address], [address], [facility] 07/15/2019 14:22:18 Influenza, split virus, quadrivalent, preservative 04/13/20 20 completed Milka Guevara [facility] 04/16/2020 08:14:22 Pneumococcal conjugate PCV 13 04/13/20 20 [facility] 08:14:35 COVID-19, mRNA, LNP-S, PF, 100 mcg/0.5mL dose or 50 mcg/0.25mL dose 11/11/19 21 [facility] 14:02:16 COVID-19, mRNA, LNP-S, PF, 100 mcg/0.5mL dose or 50 mcg/0.25mL dose 12/16/19 21 completed Tanya Reece [facility] 01/04/2021 14:02:26 Past Encounters Encounter ID Performer Location Encounter Start Date Encounter Closed Date Diagnosis/Indication Diagnosis SNOMED-CT Code Diagnosis ICD10 Code Diagnosis Note [id number] Maraia Ramsey NP, S [facility] [address] [facility],[place] [address] 12/10/2017 09:50:24 12/10/2017 10:55:16 Pre-surgery evaluation 430774738 Z01.818 cleared for proposed procedure after labs obtained and reviewed to do today, see nml EKG Essential hypertension 05200553 I10 stable Obstructiv e sleep apnea syndrome 29653856 G47.33 100% compliance with CPAP Bladder mu scle dysfunction - overactive 821636528 N32.81 myrbetriq, and interstim Pre-existi ng type 2 diabetes mellitus 408347246 E11.9 continue dietary changes made recently, continue to walk at least 1/2 hr daily Hypercholesterolemia 136 98533 E78.00 stable Depressive disorder 3548 9007 F32.89 on medication s. stable [id number] Mariaa Ramsey NP, S [facility] [address] [facility],[place] [address] 02/11/2018 13:25:24 02/11/2018 15:05:13 Bladder muscle dysfunction - overactive 310319567 N32.81 myrbetriq too expensive Type 2 phillip betes mellitus 70152539 E11.9 encourage nutri system 100% Essential hypertension 22548875 I10 stable Hypercholesterolemia 136 37841 E78.00 stable Screening procedure 2012 5006 Z13.9 [id number] Mariaa Ramsey NP, S [facility] [address] [facility],[place] [address] 04/17/2018 13:27:24 04/17/2018 17:15:31 Gastroesophageal reflux disease 300274699 K21.9 Bladder mu scle dysfunction - overactive 784106247 N32.81 Depressive disorder 3548 9007 F32.89 on medication s. stable Type 2 phillip betes mellitus 81285590 E11.9 continue nutri system 100% Hyperlipidemia 01034404 E78.2 reviewed labs Essential hypertension 61234129 I10 stable Sleep apnea 49300607 G47 .30 compliant Constipation 68293457 K5 9.00 Hemifacial spasm 6942463 8 G51.3 [id number] Mariaa Ramsey NP, [facility] [address] [facility],[place] [address] 07/17/2018 10:02:50 07/17/2018 11:29:29 Bladder muscle dysfunction - overactive 235107101 N32.81 Type 2 phillip betes mellitus 67100139 E11.9 Hyperlipidemia 80244789 E78.2 Essential hypertension 12249386 I10 stable Sleep apnea 66897375 G47 .30 compliant Autoimmune disease 56784 009 M35.9 await results from rn document improvement specialist - labs scanned into chart [id number] Mariaa Ramsey NP, [facility] [address] [facility],[place] [address] 08/06/2018 14:33:03 08/06/2018 16:42:41 Pain in right hip joint 9273200082 30341 M25.551 Anxiety 59832291 F41.9 [id number] Mariaa Ramsey NP, [facility] [address] [facility],[place] [address] 10/09/2018 09:53:09 10/09/2018 10:36:56 Type 2 diabetes mellitus 09348189 E11.9 History of polyp of colon 730156998 Z86.010 Bereavement 60709577 Z63 .4 Initial insomnia 6329402 8 G47.00 [id number] Mariaa Ramsey NP, [facility] [address] [facility],[place] [address] 11/05/2018 10:21:20 11/05/2018 14:42:27 Gastroesophageal reflux disease 237106780 K21.9 stable Bladder mu scle dysfunction - overactive 934230392 N32.81 continue meds Depressive disorder 3548 9007 F32.89 Hyperlipidemia 89414863 E78.2 reviewed labs, repeat in 1 month Essential hypertension 40282026 I10 stable Sleep apnea 02377390 G47 .30 compliant Polyp of colon 17199662 K63.5 Acute sinusitis 26427051 J01.90 viral Bereavement 88884495 Z63 .4 in therapy [id number] Mariaa Ramsey NP, [facility] [address] [facility],[place] [address] 12/09/2018 09:12:24 12/09/2018 10:23:41 Gastroesophageal reflux disease 261073645 K21.9 stable Bladder mu scle dysfunction - overactive 648973574 N32.81 continue meds Type 2 phillip betes mellitus 78645804 E11.9 A1C 6.3 Hyperlipidemia 76234776 E78.2 reviewed labs Essential hypertension 52321455 I10 D/C lisinopril , start avapro Sleep apnea 71896101 G47 .30 compliant [facility] [address] [facility],[place] [address] 01/17/2019 10:04:50 01/17/2019 11:08:21 Gastroesophageal reflux disease 089504112 K21.9 stable Bladder mu scle dysfunction - overactive 148283239 N32.81 continue meds continue care under uro Type 2 phillip betes mellitus 01250603 E11.9 A1C 6.3 increased blood sugars - advised to stop late night snacking and try to follow a restrictiv e eating schedule of 12 hours of eating and 12 hours of fasting while asleep Hyperlipidemia 24627288 E78.2 reviewed labs Essential hypertension 18703358 I10 lisinopril was stopped due to cough and was started on avapro bp remains stable and the cough has improved Sleep apnea 26624704 G47 .30 compliant with cpap Generalize d anxiety disorder 67486074 F41.1 had been on citalopram for years, but then stopped it and would like to restart again seeing therapy bereavemen t groups etc Flatulence symptom 41239 8004 R14.3 try wheat free diet warned it may take several weeks to months to notice an improvemen t [id number] [facility] [address] [facility] [place] [address] 03/03/2019 15:40:27 03/03/2019 16:19:48 Candidiasis of vagina 66941692 B37.3 no swimming until sx resolve was swimsuit in between change poise pads more frequently Scleritis 67466777 H15.0 09 on remicaide Essential hypertension 31453733 I10 well controlled [id number] [facility] [address] [facility] [place] [address] 03/14/2019 15:47:34 03/14/2019 16:12:24 Candidiasis of vagina 80564416 B37.3 sx resolved then returned will do another course of diflucan but she may also have a uti Scleritis 69191778 H15.0 09 on remicade Essential hypertension 52873929 I10 well controlled Increased frequency of urination 654228915 R35.0 possible uti, will culture and treat empiricall y Autoimmune disease 14244 009 M35.9 Otitis externa 7069911 H 60.90 [id number] [facility] [address] [facility], [place] [address] 04/16/2019 09:50:46 04/16/2019 10:56:55 Gastroesophageal reflux disease 598141473 K21.9 stable Bladder mu scle dysfunction - overactive 450268695 N32.81 continue meds continue care under uro urinary leakage persists - recommend kegels Type 2 phillip betes mellitus 51795308 E11.9 needs a1c Hyperlipidemia 62637491 E78.2 reviewed labs Essential hypertension 11663454 I10 very well controlled Sleep apnea 20784488 G47 .30 compliant with cpap Generalize d anxiety disorder 18316954 F41.1 citalopram working well Candidiasis of vagina 72 630372 B37.3 mostly improved, still some mild itching - will retreat Scleritis 82687697 H15.0 09 on remicade with improvemen t Nasal congestion 5245870 0 R09.81 Acute low back pain 2788 62218 M54.5 heat walking gentle stretching advil/alev e prn Dry skin 37523133 L85.3 HTC applied to ears [id number] [facility] [address] [facility],[place] [address] 07/15/2019 14:07:08 07/15/2019 14:43:49 Type 2 diabetes mellitus 19361282 E11.9 a1c at goal, but with high fbs in between will increase from 500 mg to 1000 mg qd doesn't need refill has a surplus Hyperlipidemia 42213047 E78.2 reviewed labs lft trending up will change simvastati n to atorvastat in for better control at lower dose Essential hypertension 95388226 I10 very well controlled Sleep apnea 63982476 G47 .30 compliant with cpap Generalize d anxiety disorder 43861170 F41.1 citalopram not really working for her would like to make a change will try a change to duloxetine Scleritis 58747410 H15.0 09 on remicade with improvemen t Hyperkalemia 54091019 E8 7.5 Acute righ t otitis media 542996080 H66.91 Acute low back pain 2788 10981 M54.5 has been seeing chiro with some relief, but only temporary may continue to take advil heat/ice avoid heavy lifting f/u if needed [id number] [facility] Internal Medicine [address] [facility],[place] [address] 10/15/2019 09:57:39 10/15/2019 11:18:16 Abdominal pain 16090735 R10.9 if sx worsen at all go to ER [place] feces 7977419534 82333 R19.5 Dark yellow urine 150887 001 R39.89 Malodorous urine 6656222 01 R82.998 will treat empiricall y with cipro and stop abx if culture is negative at high risk for yeast infection, will have to treat that if occurs as well Hyperglycemia 67686351 R 73.9 Seems probable in the absence of diet/activ ity level change that her elevated bs are related to infection Acid reflux 705964607 K2 1.9 49672 JAVIER Quiñones [facility] Internal Medicine [address] [facility],[place] [address] 10/31/2019 11:08:45 10/31/2019 11:42:57 Non-alcoholic fatty liver 917058013 K76.0 discussed weight loss Gallstone 504584034 K80. 20 will refer to gen surg Constipation 22941683 K5 9.00 increase colace from qd to bid Type 2 phillip betes mellitus 79536755 E11.9 a1c at goal, but with high fbs in between will increase from 500 mg to 1000 mg qd doesn't need refill has a surplus [id number] ARACELY SAINZ [facility] Internal Medicine [address] [facility],[place] [address] 12/02/2019 13:46:51 12/02/2019 14:50:48 Left upper quadrant pain 045020715 R10.12 as below Diverticulitis 825840746 K57.92 patient is presenting with symptoms that can be possible diverticul itis the patient is advised to do 24 hours of clear fluid diet and take medication s as prescribed will call us tomorrow afternoon for f/u [id number] ARACELY SAINZ Internal Medicine [address] [facility] on [address],[place] [address] [place] [facility] [place] [address] 12/09/2019 09:41:12 12/09/2019 11:24:54 Type 2 diabetes mellitus 44275304 E11.9 numbers were high but she is also recovering from an infection Diverticulitis 498320462 K57.92 patient is doing much better Essential hypertension 77474686 I10 BP doing well will f/u for recheck in the summer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
== END ==
LOC: HO.CARD 07:40
PROVIDERS: Visit Provider Physician Assistant
DX: R00.2 Palpitations (principal)
CPT/HCPCS: 93242

== ENCOUNTER → 2024-11-20 07:44 | Outpatient (BNV) | payer MEDICARE, SELFPAY | PROVIDERS: Visit Provider Internal Medicine Cardiovascular Disease | DX: I49.3 Ventricular premature depolarization (principal) | CPT/HCPCS: 93244 ==

== ENCOUNTER 2025-04-04 07:45 | Outpatient (REF) | payer MEDICARE, SELFPAY ==
[2025-04-04 08:13] LABS: MANUAL DIFF FLAG NO
[2025-04-04 08:23] LABS: Hematocrit 37.1 % (37.0-47.0); Hemoglobin 12.3 g/dl (12.0-16.0); Imm Gran Abs Auto 0.05 X10*3/uL (0.00-0.03); Imm Gran Pct Auto 0.8 % (0.0-0.4); Lymphocytes Absolute Auto 1.7 X10*3/uL (1.2-4.9); Mean Corpuscular HGB Conc 33.2 g/dl (31.0-35.0); Mean Corpuscular Hemoglobin 29.3 pg (27.0-33.0); Mean Corpuscular Volume 88.3 fL (80.0-98.0); NRBC Abs Auto 0.000 X10*3/uL (0.0-0.012); NRBC Pct Auto 0.0 /100WBC (0.0-0.2); Platelet Count 142 X10*3/uL (160-400); Red Blood Count 4.20 X10*6/uL (4.20-5.50); White Blood Count 5.9 X10*3/uL (4.8-10.8)
[2025-04-04 08:34] LABS: Hemoglobin A1C 171.0209 umol/L; Total Hemoglobin (HGBA1C) 3255.7730 umol/L
[2025-04-04 09:05] LABS: Alanine Aminotransferase 64 U/L (0-31); Albumin Level 4.5 g/dL (3.5-5.0); Alkaline Phosphatase 94 U/L (39-117); Anion Gap 18 (12-20); Aspartate Amino Transferase 80 U/L (5-31); Blood Urea Nitrogen 23 mg/dL (9-16); Calcium 9.6 mg/dL (8.4-10.2); Carbon Dioxide 23 mmol/L (22-29); Chloride 104 mmol/L (96-108); Estimated Glomerular Filt Rate 36; Potassium 4.3 mmol/L (3.3-5.1); Sodium 141 mmol/L (135-145); Total Protein 8.2 g/dL (6.5-8.0)
== END 2025-04-04 07:46 | disposition home or self-care (01) ==
LOC: HO.LAB 07:45
PROVIDERS: PCP Internal Medicine; Visit Provider Physician Assistant
DX: E11.65 Type 2 diabetes mellitus with hyperglycemia (principal)
CPT/HCPCS: 36415; 80053; 83036; 85025

== ENCOUNTER 2025-05-22 09:53 | Outpatient (REF) | payer MEDICARE, SELFPAY ==
[2025-05-22 14:31] LABS: Alanine Aminotransferase 56 U/L (0-31); Albumin Level 4.5 g/dL (3.5-5.0); Alkaline Phosphatase 76 U/L (39-117); Anion Gap 12 (12-20); Aspartate Amino Transferase 65 U/L (5-31); Blood Urea Nitrogen 24 mg/dL (9-16); Calcium 9.3 mg/dL (8.4-10.2); Carbon Dioxide 22 mmol/L (22-29); Chloride 107 mmol/L (96-108); Estimated Glomerular Filt Rate 53; Potassium 4.1 mmol/L (3.3-5.1); Sodium 137 mmol/L (135-145); Total Protein 8.2 g/dL (6.5-8.0)
== END 2025-05-22 09:54 | disposition home or self-care (01) ==
LOC: HO.HMGCLDS 09:53
PROVIDERS: PCP Internal Medicine; Visit Provider Internal Medicine
DX: R79.89 Other specified abnormal findings of blood chemistry (principal)
CPT/HCPCS: 36415; 80053; 82248